=== PATIENT | female | born 1945 | race Caucasian/White ===

== ENCOUNTER 2022-10-29 02:43 | Emergency (ER) | payer MEDICARE, SELFPAY ==
[2022-10-29 02:45] VITALS: BP 135/94; PULSE 69; RESP 12; TEMP 35; O2SAT 87
--- NOTE | 2022-10-29 02:45 | ED_ITS ---
HPI - Altered Mental Status General Chief Complaint: Fall Stated Complaint: FALL Time Seen by Provider: 10/29/22 02:45 History of Present Illness HPI narrative: NHP with history of hypoxemia who is 02 dependent. Normally wears 6L NC. Found in the hallway not wearing her 02. Was on the floor and unresponsive. Hypotensive and hypoxemia. 6L NC placed by nursing staff and Squad called. Patient became more responsive after 02 given. Squad now arrives and states patient is back at her base line . Pulse ox 94% on 6L NC. Patient has a bump above her right eye. Also complains of a headache and states she feels cold. Denies other injury. No nausea or dizziness Related Data Home Medications Medication Instructions Recorded Confirmed acetaminophen 325 mg capsule 325 mg PO Q6H PRN fever or pain 10/29/22 10/29/22 aclidinium bromide 400 1 inh inhalation BID 10/29/22 10/29/22 mcg/actuation breath activated powder inhaler ([employer]) albuterol sulfate 2.5 mg/3 mL 1.25 mg inhalation Q6H 10/29/22 10/29/22 (0.083 %) solution for nebulization atorvastatin 10 mg tablet 10 mg PO DAILY 10/29/22 10/29/22 budesonide-formoterol HFA 160 2 puff inhalation BID 10/29/22 10/29/22 mcg-4.5 mcg/actuation aerosol inhaler clonazepam 0.5 mg tablet 0.5 mg PO TID PRN anxiety 10/29/22 10/29/22 diltiazem HCl 30 mg tablet 60 mg PO BID 10/29/22 10/29/22 furosemide 40 mg tablet 40 mg PO BID 10/29/22 10/29/22 metoprolol succinate 25 mg 25 mg PO BID 10/29/22 10/29/22 tablet,extended release 24 hr multivitamin (Daily Multi-Vitamin 1 tab PO DAILY 10/29/22 10/29/22 tablet) omega-3 1,050 mn-zne-fqm-dpa-fish 1 cap PO DAILY 10/29/22 10/29/22 oil 1,200 mg capsule ([place]-3 (with docosapentaenoic acid)) quetiapine 25 mg tablet 12.5 mg PO DAILY PRN insomnia 10/29/22 10/29/22 sertraline 100 mg tablet 100 mg PO DAILY 10/29/22 10/29/22 warfarin 1 mg tablet 1 mg PO DAILY 10/29/22 10/29/22 warfarin 5 mg tablet 2.5 mg PO DAILY 10/29/22 10/29/22 Allergies Allergy/AdvReac Type Severity Reaction Status Date / Time FLORENCIO Inhibitors Allergy Unknown Verified 10/29/22 02:53 hydromorphone Allergy Unknown Verified 10/29/22 02:53 NSAIDS (Non-Steroidal Allergy Unknown Verified 10/29/22 02:53 Anti-Inflamma Review of Systems ROS Status of ROS 10 or more systems reviewed and unremarkable except as noted in history and below [facility] Medical History (Updated 10/29/22 @ 05:19 by Yannick Childress MD) Exam Constitutional Vital Signs - 24 hr 10/29/22 02:45 10/29/22 02:54 10/29/22 03:19 Temperature 95.0 F L 98.5 F Pulse Rate Pulse Rate [Monitor] 69 Respiratory Rate 12 Blood Pressure Blood Pressure [Right Arm] 135/94 H Pulse Oximetry 87 L 96 Oxygen Delivery Method Nasal Cannula Oxygen Delivery Flow Rate 6 6 10/29/22 02:46 10/29/22 02:46 Temperature Pulse Rate 110 H 91 H Pulse Rate [Monitor] Respiratory Rate 24 14 Blood Pressure 135/94 H 135/94 H Blood Pressure [Right Arm] Pulse Oximetry 72 L 97 Oxygen Delivery Method Oxygen Delivery Flow Rate Common normals: no apparent distress, oriented x3 and alert HENMT Common normals: normocephalic Head and scalp: other (mild contusion at right eyebrow.) Eye Common normals: EOMs intact bilaterally and conjunctivae normal Respiratory Effort & inspection: able to speak in complete sentences Other: diminished breath sounds Cardio Common normals: regular rhythm, S1 normal heart sound and S2 normal heart sound GI Common normals: Normal to inspection, nondistended, normoactive bowel sounds present and non-tender Back & Pelvis Common normals: no CVA tenderness, thoracic and lumbar spine normal to inspection, no thoracic nor lumbar tenderness and straight leg raise negative bilaterally Other: hips nontender Extremity Common normals: normal to inspection Neuro Common normals: oriented x3, CN's II-XII intact bilaterally, moves all extremities, no focal motor deficits and no sensory deficits noted Psych Appearance: grossly normal Course Vital Signs Vital signs: Vital Signs Temperature 95.0 F L 10/29/22 02:45 Pulse Rate 69 10/29/22 02:45 Respiratory Rate 12 10/29/22 02:45 Blood Pressure 135/94 H 10/29/22 02:45 Pulse Oximetry 87 L 10/29/22 02:45 Oxygen Delivery Method Nasal Cannula 10/29/22 02:45 Oxygen Delivery Flow Rate 6 10/29/22 02:45 Temperature 98.5 F 10/29/22 02:54 Pulse Rate 91 H 10/29/22 02:46 Respiratory Rate 14 10/29/22 02:46 Blood Pressure 135/94 H 10/29/22 02:46 Pulse Oximetry 96 10/29/22 03:19 Oxygen Delivery Method Nasal Cannula 10/29/22 02:45 Oxygen Delivery Flow Rate 6 10/29/22 03:19 MDM - Altered Mental Status MDM Narrative Medical decision making narrative: patient has history of COPD and chronic hypoxemia. Was found unresponsive in the hallway not wearing her 02. She did become responsive once 02 was applied but was still hypoxemic at the home. By the time squad got her here she was awake and back to baseline. Found to have focal contusion at right eyebrow. CT brain without acute findings. Cxray with chronic changes. Patient is resting comfortably with not complaint at this time. Will discharge back to the shelter. Will require transfer via Squad Lab Data Labs: Lab Results 10/29/22 Range/Units 03:04 WBC 8.6 (4.0-11.0) 10^3/uL RBC 3.75 L (4.20-5.40) 10^6/uL Hgb 11.3 L (12.0-16.0) g/dL Hct 37.0 (36.0-48.0) % MCV 98.7 (81.0-99.0) fL MCH 30.1 (26.7-34.0) pg MCHC 30.5 (29.9-35.2) g/dL RDW 17.4 H (11.0-15.0) % Plt Count 250 (150-450) 10^3/uL MPV 9.9 (9.5-13.5) fL Neut % (Auto) 68.8 (43.0-75.0) % Lymph % (Auto) 10.2 L (20.5-60.0) % [place] % (Auto) 13.3 H (1.7-12.0) % Eos % (Auto) 4.6 (0.9-7.0) % Baso % (Auto) 1.2 (0.2-2.0) % Neut # (Auto) 5.9 (1.4-6.5) 10^3/uL Lymph # (Auto) 0.9 L (1.2-3.8) 10^3/uL [place] # (Auto) 1.1 H (0.3-0.8) 10^3/uL Eos # (Auto) 0.4 (0.0-0.7) 10^3/uL Baso # (Auto) 0.1 (0.0-0.1) 10^3/uL Abs Immat Gran (auto) 0.16 H (0.00-0.03) 10^3/uL Imm/Tot Granulo (auto) 1.9 H (0.0-0.5) % Sodium 141 (136-145) mmol/L Potassium 3.9 (3.5-5.1) mmol/L Chloride 101 (98-107) mmol/L Carbon Dioxide 33.1 H (21.0-32.0) mmol/L Anion Gap 10.8 BUN 30.0 H (7.0-18.0) mg/dL Creatinine 1.28 H (0.55-1.02) mg/dL Est GFR ( Amer) 49 L (>=60) Est GFR (Non-Af Amer) 40 L (>=60) BUN/Creatinine Ratio 23.4 Glucose 141 H (74-106) mg/dL Calcium 8.5 (8.5-10.1) mg/dL Troponin I High Sens 12.5 (4.0-51.3) pg/mL Discharge Plan Discharge Chief Complaint: Fall Clinical Impression: Hypoxemia, Contusion of face, Head injury Patient Disposition: Home, Self-Care Prescriptions / Home Meds: No Action acetaminophen 325 mg capsule 325 mg PO Q6H PRN (Reason: fever or pain) albuterol sulfate 2.5 mg /3 mL (0.083 %) solution for nebulization 1.25 mg inhalation Q6H atorvastatin 10 mg tablet 10 mg PO DAILY budesonide-formoterol 160-4.5 mcg/actuation HFA aerosol inhaler 2 puff INHALATION BID clonazepam 0.5 mg tablet 0.5 mg PO TID PRN (Reason: anxiety) diltiazem HCl 30 mg tablet 60 mg PO BID furosemide 40 mg tablet 40 mg PO BID metoprolol succinate 25 mg tablet extended release 24 hr 25 mg PO BID multivitamin [Daily Multi-Vitamin] Tablet 1 tab PO DAILY [place]-3 (with dpa) 1,050-1,200 mg capsule 1 cap PO DAILY quetiapine 25 mg tablet 12.5 mg PO DAILY PRN (Reason: insomnia) sertraline 100 mg tablet 100 mg PO DAILY [employer] Pressair 400 mcg/actuation aerosol powdr breath activated 1 inh INHALATION BID warfarin 5 mg tablet 2.5 mg PO DAILY warfarin 1 mg tablet 1 mg PO DAILY Instructions: Head Injury (ED), Using Oxygen at Home (ED), Hypoxemia (DC), Facial Contusion (ED) Stand Alone Forms: Portal Instructions Referrals: ELLIE WINN DO [Physician] - 1 week
[2022-10-29 02:46] VITALS: BP 135/94; PULSE 110; PULSE 91; RESP 14; RESP 24; O2SAT 72; O2SAT 97
--- NOTE | 2022-10-29 02:50 | XR_ITS ---
The [address] [address] Patient Name: ARGELIA LOMBARDI MRN: [id number] date: 1945 Sex: F Assigned Patient Location: ER Current Patient Location: ED.MAIN Accession/Order Number: [id number] Exam Date: 10/29/2022 03:28 Report Date: 10/29/2022 05:21 At the request of: JAYLEN PINZON Procedure: XR chest 2V EXAM: XR chest 2V 10/29/2022 3:28 AM EDT OH001 CLINICAL STATEMENT: short of breath COMPARISON: No prior studies are available at the time of dictation. TECHNIQUE: PA and lateral radiograph of the chest is submitted. FINDINGS: There is mild pulmonary vascular congestion with bilateral atelectasis and/or airspace disease. Enlarged cardiac silhouette. Atherosclerotic aortic calcification. The costophrenic recesses are sharp. No pneumothorax. The bony elements are unremarkable. IMPRESSION: Mild pulmonary vascular congestion with bilateral atelectasis and/or airspace disease. Enlarged cardiac silhouette. Atherosclerotic aortic calcification. Electronically authenticated by: GEORGE ESQUIVEL Date: 10/29/2022 05:21
--- NOTE | 2022-10-29 02:50 | CT_ITS ---
The [address] [address] Patient Name: ARGELIA LOMBARDI MRN: [id number] date: 1945 Sex: F Assigned Patient Location: ED.MAIN Current Patient Location: Accession/Order Number: [id number] Exam Date: 10/29/2022 03:28 Report Date: 10/29/2022 05:04 At the request of: JAYLEN PINZON Procedure: CT head/brain wo con EXAM: CT head/brain wo con CLINICAL INDICATION: injury COMPARISON: None TECHNIQUE: Axial CT images of the brain were obtained without contrast. Dose reduction techniques were achieved by using automated exposure control and/or adjustment of mA and/or kV according to patient size and/or use of iterative reconstruction technique. FINDINGS: Brain parenchyma: No mass effect or midline shift is seen. Hua-white differentiation is maintained. No findings suspicious for intracranial hemorrhage. No findings suggesting acute stroke. Periventricular hypoattenuation / patchy white matter hypodensities are statistically most often related to small vessel ischemic disease. Ventricles and extra-axial spaces: Ventricles are concordant with sulci. No findings suggesting hydrocephalus. Visualized paranasal sinuses: No findings suggesting acute sinusitis. Mastoid air cells: Clear. Included portions of the orbits:Included portions of the orbits with no evidence of fracture or other acute pathology. Bones: No fracture is seen. Impression: 1. No acute intracranial process. 2. Age-appropriate cerebral volume loss with mild chronic small vessel ischemic disease. Electronically authenticated by: NEIL ESQUEDA Date: 10/29/2022 05:04
--- NOTE | 2022-10-29 02:50 | ECG_ITS ---
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
[2022-10-29 02:54] VITALS: TEMP 36.9
[2022-10-29 03:13] LABS: Basophils Absolute Auto 0.1 10^3/uL (0.0-0.1); Basophils Percent Auto 1.2 % (0.2-2.0); Eosinophils Absolute Auto 0.4 10^3/uL (0.0-0.7); Eosinophils Percent Auto 4.6 % (0.9-7.0); Hemoglobin 11.3 g/dL (12.0-16.0); Immature Granulocytes Abs Auto 0.16 10^3/uL (0.00-0.03); Immature Granulocytes Pct Auto 1.9 % (0.0-0.5); Lymphocytes Absolute Auto 0.9 10^3/uL (1.2-3.8); Lymphocytes Percent Auto 10.2 % (20.5-60.0); Mean Corpuscular HGB Conc 30.5 g/dL (29.9-35.2); Mean Corpuscular Hemoglobin 30.1 pg (26.7-34.0); Mean Corpuscular Volume 98.7 fL (81.0-99.0); Mean Platelet Volume 9.9 fL (9.5-13.5); Monocytes Absolute Auto 1.1 10^3/uL (0.3-0.8); Monocytes Percent Auto 13.3 % (1.7-12.0); Neutrophils Absolute Auto 5.9 10^3/uL (1.4-6.5); Neutrophils Percent Auto 68.8 % (43.0-75.0); Platelet Count 250 10^3/uL (150-450); Red Blood Count 3.75 10^6/uL (4.20-5.40); Red Cell Distribution Width 17.4 % (11.0-15.0); White Blood Count 8.6 10^3/uL (4.0-11.0)
[2022-10-29 03:19] VITALS: O2SAT 96
[2022-10-29 03:28] LABS: Anion Gap 10.8; BUN Creatinine Ratio 23.4; Calcium 8.5 mg/dL (8.5-10.1); Carbon Dioxide 33.1 mmol/L (21.0-32.0); Chloride 101 mmol/L (98-107); Estimated GFR (African America 49 (>=60); Estimated GFR (Non-African Ame 40 (>=60); Glucose 141 mg/dL (74-106); Potassium 3.9 mmol/L (3.5-5.1); Sodium 141 mmol/L (136-145); Troponin I High Sensitivity 12.5 pg/mL (4.0-51.3)
--- NOTE | 2022-10-29 03:44 | PC.NURSE ---
arrives via EMS from [facility]. pt had unwitnessed fall prior to arrival. per [facility] nurse Antonina post fall patient was unresponsive with guppy breathing, bp 803/40s, spO2 on 6L low 70s. nurse states patient was not wearing o2 when found and normally wears 6L at all times. upon EMS arrival patient began to be more alert but remained slow to respond. upon arrival to ED dr bach met pt at bedside, pt alert and oriented to self, place, not oriented to time or situation regarding fall. states she does not remember events leading up to the fall or [facility]. denies neck or back pain. complains of headache to right side and rates pain 2/10. patient takes daily blood thinner. pts arrived after patient and told this RN patient appears to be at normal orientation, as she has history of dementia, he states she has very poor short term memory. patients states she is supposed to wear oxygen all the time but frequently takes it off and forgets to put it back on. per patients patient is acting like her normal self at this time. EKG obtained during triage. patient arrives with IV established by EMS.
--- NOTE | 2022-10-29 07:32 | PC.NURSE ---
0715 -- Pt wondered if he could take pt back to [facility] himself. He states he has oxygen tanks in the car. Received approval by Dr Castaneda. assisted pt into wheelchair, pt cooperative. Oxygen NC remains intact.
== END 2022-10-29 07:29 | disposition home or self-care (01) ==
PROVIDERS: Emergency Provider Internal Medicine; PCP Family Medicine
DX: R09.02 Hypoxemia (principal); S00.11XA Contusion of right eyelid and periocular area, initial encounter; S09.90XA Unspecified injury of head, initial encounter; Z99.81 Dependence on supplemental oxygen; J44.9 Chronic obstructive pulmonary disease, unspecified; Z79.899 Other long term (current) drug therapy; Z79.01 Long term (current) use of anticoagulants; W19.XXXA Unspecified fall, initial encounter
CPT/HCPCS: 36415; 70450; 71046; 80048; 84484; 85025; 93005; 99285

== ENCOUNTER 2022-10-29 22:26 | Inpatient (IN) | payer MEDICARE, SELFPAY ==
[2022-10-29] VITALS (12 sets, daily range): BP systolic 85–116; BP diastolic 66–80; PULSE 100–124; RESP 13–36; TEMP 36.6; O2SAT 77–97; BMI 25.8
--- NOTE | 2022-10-29 22:27 | CT_ITS ---
[address] [address] Patient Name: ARGELIA LOMBARDI MRN: [id number] date: 1945 Sex: F Assigned Patient Location: ER Current Patient Location: ER Accession/Order Number: [id number] Exam Date: 10/29/2022 22:28 Report Date: 10/29/2022 22:50 At the request of: TOSHIA BECKWITH Procedure: CT stroke head/brain wo con EXAMINATION: CT stroke head/brain wo con TECHNIQUE: Axial CT images were obtained through the brain. Sagittal and coronal reformatted images were also obtained. Dose reduction techniques were achieved by using automated exposure control and/or adjustment of mA and/or kV according to patient size and/or use of iterative reconstruction technique. HISTORY: ams COMPARISON: 10/29/2022 at 3:30 AM FINDINGS: Intracranial Bleed: No evidence for acute intracranial bleed. Intracranial Mass: No evidence for mass lesion. No mass effect or midline shift. Extra-axial spaces: There is mild cerebral atrophy and proportional ventricular enlargement. White/Hua Matter: No acute cortical infarct. Mild white matter patchy low attenuation suggesting chronic small vessel ischemic change. Skull/Scalp: No evidence for skull fracture or lesion. Orbits and sinuses: The orbits appear unremarkable. The visualized paranasal sinuses are clear. IMPRESSION: No acute intracranial pathology. Electronically authenticated by: KOJO HERRING Date: 10/29/2022 22:50
--- NOTE | 2022-10-29 22:48 | XR_ITS ---
The [address] [address] Patient Name: ARGELIA LOMBARDI MRN: [id number] date: 1945 Sex: F Assigned Patient Location: ER Current Patient Location: ER Accession/Order Number: [id number] Exam Date: 10/29/2022 23:06 Report Date: 10/30/2022 00:05 At the request of: TOSHIA MARKER Procedure: XR chest 1V EXAM: XR chest 1V 10/29/2022 11:06 PM EDT OH001 CLINICAL STATEMENT: SOB COMPARISON: No prior studies are available at the time of dictation. TECHNIQUE: Single AP radiograph of the chest is submitted. FINDINGS: There is bilateral lower lobe airspace disease. Enlarged cardiac silhouette. Mild right pleural effusion. Atherosclerotic aortic calcifications. No pneumothorax. The bony elements are unremarkable. IMPRESSION: Bilateral lower lobe airspace disease. Enlarged cardiac silhouette. Mild right pleural effusion. Electronically authenticated by: GEORGE ESQUIVEL Date: 10/30/2022 00:05
--- NOTE | 2022-10-29 22:49 | ECG_ITS ---
The [facility] Test Date: 2022-10-29 Pat Name: ARGELIA LOMBARDI Department: Room: - Gender: Female Cafeteria Assistant: : 1945 Requested By: [id number] Order Number: [id number] Reading MD: ALISON FUENTES Measurements Intervals [place] Rate: 129 P: -41145 HI: -96476 QRS: 93 QRSD: 88 T: -69 QT: 314 QTc: 390 Interpretive Statements 37759 Atrial fibrillation with rapid ventricular response 2420 RSR (QR) in lead V1/V2, consistent with right ventricular conduction delay ST/T wave changes, can't exclude inferolateral myocardial ischemia 7102 Moderate right axis deviation 9140 abnormal rhythm ECG Electronically Signed On 10-30-2022 7:03:00 EDT by ALISON FUENTES
--- NOTE | 2022-10-29 22:50 | ED_ITS ---
HPI - Neuro Symptoms/Deficit General Chief Complaint: Neuro Symptoms/Deficit Stated Complaint: cva Time Seen by Provider: 10/29/22 22:35 Mode of arrival: ambulance Limitations: no limitations History of Present Illness HPI Narrative: This patient was brought to the emergency department from the [facility] where she currently resides and has been there for less than one week after being admitted there for rehab is brought to the ED for evaluation of altered mental status. There was concern for a stroke as the patient was confused with slurred speech and was leaning to the left with a facial droop and drooling. The patient was seen in this emergency department yesterday for similar symptoms. Yesterday she had fallen and has some bruises on the right side of her face. There was no report of any fall or injury today.The patient has a history of chronic obstructive pulmonary disease and CHF with requirements for supplemental oxygen and is noncompliant with her oxygen. Yesterday she was noted to have taken the oxygen off. Upon arrival today she is not wearing oxygen. She is awake, alert, able to follow commands. She is not leaning to the right. She does not remember where she came from the has a history of dementia. She was evaluated and admitted for observation last night and discharged back to the [facility] earlier today. There was no history of trauma today. Additional history is obtained from the patient's - he states that she has recently had thoracentesis twice due to pleural effusions. She has a history of congestive heart failure. Her glass embosser is Dr. Fraire Onset (ago): hour(s) (1) Related Data Home Medications Medication Instructions Recorded Confirmed acetaminophen 325 mg capsule 650 mg PO Q6H PRN fever or pain 10/29/22 10/30/22 aclidinium bromide 400 1 inh inhalation BID 10/29/22 10/30/22 mcg/actuation breath activated powder inhaler (Jackdorza Pressair) albuterol sulfate 2.5 mg/3 mL 1.25 mg inhalation Q6H 10/29/22 10/30/22 (0.083 %) solution for nebulization atorvastatin 10 mg tablet 10 mg PO DAILY 10/29/22 10/30/22 budesonide-formoterol HFA 160 2 puff inhalation BID 10/29/22 10/30/22 mcg-4.5 mcg/actuation aerosol inhaler clonazepam 0.5 mg tablet 0.5 mg PO TID PRN anxiety 10/29/22 10/30/22 diltiazem HCl 30 mg tablet 60 mg PO BID 10/29/22 10/30/22 furosemide 40 mg tablet 40 mg PO BID 10/29/22 10/30/22 metoprolol succinate 25 mg 25 mg PO BID 10/29/22 10/30/22 tablet,extended release 24 hr multivitamin (Daily Multi-Vitamin 1 tab PO DAILY 10/29/22 10/30/22 tablet) omega-3 1,050 lf-kvf-hxp-dpa-fish 1 cap PO DAILY 10/29/22 10/30/22 oil 1,200 mg capsule (Stanley-3 (with docosapentaenoic acid)) quetiapine 25 mg tablet 12.5 mg PO DAILY PRN insomnia 10/29/22 10/30/22 sertraline 100 mg tablet 100 mg PO DAILY 10/29/22 10/30/22 warfarin 1 mg tablet 1 mg PO DAILY 10/29/22 10/30/22 warfarin 5 mg tablet 2.5 mg PO DAILY 10/29/22 10/30/22 Allergies Allergy/AdvReac Type Severity Reaction Status Date / Time FLORENCIO Inhibitors Allergy Unknown Verified 10/29/22 02:53 hydromorphone Allergy Unknown Verified 10/29/22 02:53 NSAIDS (Non-Steroidal Allergy Unknown Verified 10/29/22 02:53 Anti-Inflamma Review of Systems ROS Status of ROS 10 or more systems reviewed and unremarkable except as noted in history and below and unobtainable due to mental status (Hx dementia) [facility] Medical History (Updated 10/30/22 @ 02:33 by Jamie Harman MD) Family History (Updated 10/30/22 @ 02:33 by Jamie Harman MD) Father Family history of CHF (congestive heart failure) Family history of COPD (chronic obstructive pulmonary disease) Family history of hypertension Family history of myocardial infarction Mother Family history of COPD (chronic obstructive pulmonary disease) Other Dementia Social History (Updated 10/30/22 @ 02:20 by Toya Millan) Within the past year, how often did you have a drink containing alcohol: never Score interpretation: A score less than 3 is consistent with normal alcohol consumption. Smoking status: Light tobacco smoker Do you use any of these nicotine containing products: other Nicotine containing products detail: cigarettes Second hand tobacco smoke exposure: Yes Non-prescribed substance use: denies use Previous occupational history: RN Known occupational exposures/hazards: Yes Highest level of school completed/degree received: Associate degree: occupational, technical, vocational program Do you want help with school or training: No Are you now , , , , never or living with a partner: In a typical week, how many times do you talk on the telephone with family, friends, or neighbors: never How often do you get together with friends or relatives: never How often do you attend amish or samaritan services: never Do you belong to any clubs or organizations such as amish groups unions, [employer] or athletic groups, or school groups: no Total score: 1 Score interpretation: A score of less than or equal to 1 indicates the most socially isolated. Little interest or pleasure in doing things: nearly every day Feeling down, depressed, or hopeless: nearly every day Feel stressed/tense/nervous/anxious/difficulty sleeping: very much Life stressor details: respiratory stress Due to disability, difficulty making decisions: Yes Do you think of yourself as: decline to answer Gender Identity: female Exam Narrative Exam Narrative: Constitutional: Awake, alert, answers questions appropriately, follows commands, no respiratory distress Vital signs, afebrile, tachycardic with pulse 119, blood pressure moderately low 99/72, he should noted to be hypoxic with pulse ox of 96 percent on nonrebreather HEENT, normocephalic, atraumatic, bruising to the right periorbital area, pupils are equal and reactive, no diplopia appreciated, because members are moist and pink Neck: Supple, no meningeal signs, No midline bony vertebral tenderness or step-o ff Chest: Diffusely diminished breath sounds with faint bibasilar rales, no rhonchi or wheezing noted Abdomen: Soft, nondistended nontender Back, no midline vertebral tenderness or step-off Extremities: Abrasions to multiple toes, no bony tenderness noted Neuro: Patient is awake, alert, oriented to person and place. [employer] strengths intact no facial droop, pt is too weak to perform pronator testing, able to flex at the hip on both sides and bend knees, NIH Stoke Scale is zero Constitutional Vital Signs - 24 hr 10/29/22 22:37 10/29/22 22:38 10/29/22 22:44 Temperature 97.9 F Pulse Rate 112 H 109 H Pulse Rate [Monitor] 100 H Respiratory Rate 22 22 23 Blood Pressure 94/77 103/76 Blood Pressure [Right Arm] 94/77 Pulse Oximetry 94 L Oxygen Delivery Method Simple Mask Oxygen Delivery Flow Rate 10/29/22 22:45 10/29/22 22:49 10/29/22 22:50 Temperature Pulse Rate 120 H 109 H 112 H Pulse Rate [Monitor] Respiratory Rate 18 17 17 Blood Pressure 102/70 116/80 H 96/80 H Blood Pressure [Right Arm] Pulse Oximetry 94 L 96 Oxygen Delivery Method Oxygen Delivery Flow Rate 10/29/22 22:50 10/29/22 23:00 10/29/22 23:10 Temperature Pulse Rate 114 H 109 H 100 H Pulse Rate [Monitor] Respiratory Rate 18 36 H 19 Blood Pressure 96/80 H 109/66 113/68 Blood Pressure [Right Arm] Pulse Oximetry 97 96 95 Oxygen Delivery Method Oxygen Delivery Flow Rate 10/29/22 23:22 10/29/22 23:30 10/30/22 01:00 Temperature Pulse Rate 111 H 119 H Pulse Rate [Monitor] Respiratory Rate 17 15 Blood Pressure 95/68 99/72 Blood Pressure [Right Arm] Pulse Oximetry 93 L 96 97 Oxygen Delivery Method Simple Mask Oxygen Delivery Flow Rate 6 10/29/22 23:30 10/29/22 23:40 10/29/22 23:50 Temperature Pulse Rate 110 H 116 H 124 H Pulse Rate [Monitor] Respiratory Rate 13 19 22 Blood Pressure 99/72 96/69 85/66 L Blood Pressure [Right Arm] Pulse Oximetry 96 95 77 L Oxygen Delivery Method Oxygen Delivery Flow Rate 10/30/22 00:00 10/30/22 00:10 10/30/22 00:20 Temperature Pulse Rate 94 H 108 H 112 H Pulse Rate [Monitor] Respiratory Rate 22 26 H 22 Blood Pressure 101/62 102/65 86/68 L Blood Pressure [Right Arm] Pulse Oximetry 94 L Oxygen Delivery Method Oxygen Delivery Flow Rate 10/30/22 00:32 10/30/22 00:36 10/30/22 00:36 Temperature Pulse Rate 119 H 105 H 111 H Pulse Rate [Monitor] Respiratory Rate 25 H 21 28 H Blood Pressure 119/83 H Blood Pressure [Right Arm] Pulse Oximetry 96 82 L Oxygen Delivery Method Oxygen Delivery Flow Rate 10/30/22 00:36 10/30/22 00:40 10/30/22 00:50 Temperature Pulse Rate 112 H 118 H 94 H Pulse Rate [Monitor] Respiratory Rate 24 20 19 Blood Pressure 119/83 H 115/90 H 114/84 H Blood Pressure [Right Arm] Pulse Oximetry 82 L 99 91 L Oxygen Delivery Method Oxygen Delivery Flow Rate 10/30/22 01:00 10/30/22 01:10 10/30/22 01:20 Temperature Pulse Rate 104 H 100 H 103 H Pulse Rate [Monitor] Respiratory Rate 15 17 13 Blood Pressure 112/74 99/71 93/61 Blood Pressure [Right Arm] Pulse Oximetry 96 99 99 Oxygen Delivery Method Oxygen Delivery Flow Rate Course Course Hospital Course: Patient remains awake alert and oriented at her neurologic baseline while in the emergency department. CT scan of the brain was negative for acute findings. This is in keeping with her fairly normal neuro exam with no focal deficits. An EKG is atrial fibrillation at 129 on arrival. She was given IV fluid boluses with clinical improvement patient she is in atrial fibrillation at 97 minutes. According to the patient's she has had thoracentesis twice recently for pleural effusions and congestive heart failure. An ABG was done due to the history of confusion. She has normal pH 7.36. PCO2 is mildly elevated at 54. Routine labs are reviewed. She has a normal white count and hemoglobin today. She has an elevated lactic acid at 5.6. Troponin is normal. I added on a BNP and coagulations as she does have a history of congestive heart failure and is on Coumadin. I reviewed her chest x-ray from today and yesterday. She has in the interim developed a right lower lobe infiltrate that is concerning for pneumonia. This was not present on yesterday's chest x-ray. In light of that she was medicated with IV Zosyn. She was given 20 mg of IV Lasix due to her history of congestive heart failure. Her blood pressure has remained moderately low in her mental status has remained stable.The case was discussed with the hospitalist the patient accepted for admission. Vital Signs Vital signs: Vital Signs Temperature 97.9 F 10/29/22 22:37 Pulse Rate 100 H 10/29/22 22:37 Respiratory Rate 22 10/29/22 22:37 Blood Pressure 94/77 10/29/22 22:37 Pulse Oximetry 94 L 10/29/22 22:37 Oxygen Delivery Method Simple Mask 10/29/22 22:37 Temperature 99 F 10/30/22 02:07 Pulse Rate 81 10/30/22 02:07 Respiratory Rate 24 10/30/22 02:07 Blood Pressure 103/65 10/30/22 02:07 Pulse Oximetry 91 L 10/30/22 02:28 Oxygen Delivery Method Simple Mask 10/30/22 02:28 Oxygen Delivery Flow Rate 6 10/30/22 02:28 MDM - Neuro Symptoms/Deficit Lab Data Labs: Lab Results 10/29/22 10/29/22 Range/Units 22:57 23:20 WBC 8.8 (4.0-11.0) 10^3/uL RBC 3.78 L (4.20-5.40) 10^6/uL Hgb 11.3 L (12.0-16.0) g/dL Hct 37.8 (36.0-48.0) % MCV 100.0 H (81.0-99.0) fL MCH 29.9 (26.7-34.0) pg MCHC 29.9 (29.9-35.2) g/dL RDW 17.3 H (11.0-15.0) % Plt Count 243 (150-450) 10^3/uL MPV 9.7 (9.5-13.5) fL Neut % (Auto) 74.5 (43.0-75.0) % Lymph % (Auto) 9.2 L (20.5-60.0) % [place] % (Auto) 10.3 (1.7-12.0) % Eos % (Auto) 3.2 (0.9-7.0) % Baso % (Auto) 1.0 (0.2-2.0) % Neut # (Auto) 6.5 (1.4-6.5) 10^3/uL Lymph # (Auto) 0.8 L (1.2-3.8) 10^3/uL [place] # (Auto) 0.9 H (0.3-0.8) 10^3/uL Eos # (Auto) 0.3 (0.0-0.7) 10^3/uL Baso # (Auto) 0.1 (0.0-0.1) 10^3/uL Abs Immat Gran (auto) 0.16 H (0.00-0.03) 10^3/uL Imm/Tot Granulo (auto) 1.8 H (0.0-0.5) % PT 12.9 H (9.0-11.6) sec INR 1.23 APTT 29.7 (22.3-36.2) sec Puncture Site Vv ABG pH 7.360 (7.350-7.450) ABG pCO2 54.5 H* (35.0-45.0) mmHg ABG pO2 73.1 L (80.0-100.0) mmHg ABG HCO3 30.7 H (22.0-26.0) mmol/L ABG O2 Saturation 93.7 % ABG Base Excess 5.3 H (-2.0-2.0) mmol/L Red Test Positive (POSITIVE) O2 Liters/Min 7 Sodium 137 (136-145) mmol/L Potassium 3.5 (3.5-5.1) mmol/L Chloride 98 (98-107) mmol/L Carbon Dioxide 29.0 (21.0-32.0) mmol/L Anion Gap 13.5 BUN 31.0 H (7.0-18.0) mg/dL Creatinine 1.42 H (0.55-1.02) mg/dL Est GFR ( Amer) 43 L (>=60) Est GFR (Non-Af Amer) 36 L (>=60) BUN/Creatinine Ratio 21.8 Glucose 185 H (74-106) mg/dL Lactate 5.6 H* (0.4-2.0) mmol/L Calcium 8.6 (8.5-10.1) mg/dL Total Bilirubin 0.4 (0.2-1.0) mg/dL AST 25 (15-37) U/L ALT 24 (14-59) U/L Alkaline Phosphatase 132 H (46-116) U/L Troponin I High Sens 15.3 (4.0-51.3) pg/mL NT-Pro-B Natriuret Pep 45795.0 H* (<=1800.0) pg/mL Total Protein 7.1 (6.4-8.2) g/dL Albumin 2.7 L (3.4-5.0) g/dL Globulin 4.4 g/dL Albumin/Globulin Ratio 0.6 ECG Data Attestation: I personally reviewed and interpreted this ECG as follows: (Atrial fibrillation with rapid ventricular response at 129 beats for minute, normal axis, nonspecific ST changes, no acute ST segment elevation or T-wave inversion) Critical Care Time Critical Care Time Total Critical Care Time: 45 Discharge Plan Discharge Chief Complaint: Neuro Symptoms/Deficit Clinical Impression: CHF (congestive heart failure), Atrial fibrillation, Altered mental status, COPD (chronic obstructive pulmonary disease), RLL pneumonia, Acidosis, lactic Patient Disposition: Admitted as Observation Time of Disposition Decision: 00:58 Condition: Fair Discharge Date/Time: 10/30/22 01:48
[2022-10-29 23:12] LABS: Basophils Absolute Auto 0.1 10^3/uL (0.0-0.1); Eosinophils Absolute Auto 0.3 10^3/uL (0.0-0.7); Eosinophils Percent Auto 3.2 % (0.9-7.0); Hematocrit 37.8 % (36.0-48.0); Hemoglobin 11.3 g/dL (12.0-16.0); Immature Granulocytes Abs Auto 0.16 10^3/uL (0.00-0.03); Immature Granulocytes Pct Auto 1.8 % (0.0-0.5); Lymphocytes Absolute Auto 0.8 10^3/uL (1.2-3.8); Lymphocytes Percent Auto 9.2 % (20.5-60.0); Mean Corpuscular HGB Conc 29.9 g/dL (29.9-35.2); Mean Corpuscular Hemoglobin 29.9 pg (26.7-34.0); Mean Platelet Volume 9.7 fL (9.5-13.5); Monocytes Absolute Auto 0.9 10^3/uL (0.3-0.8); Monocytes Percent Auto 10.3 % (1.7-12.0); Neutrophils Absolute Auto 6.5 10^3/uL (1.4-6.5); Neutrophils Percent Auto 74.5 % (43.0-75.0); Platelet Count 243 10^3/uL (150-450); Red Blood Count 3.78 10^6/uL (4.20-5.40); Red Cell Distribution Width 17.3 % (11.0-15.0); White Blood Count 8.8 10^3/uL (4.0-11.0)
[2022-10-29 23:27] LABS: Alanine Aminotransferase 24 U/L (14-59); Albumin Globulin Ratio 0.6; Albumin Level 2.7 g/dL (3.4-5.0); Alkaline Phosphatase 132 U/L (46-116); Anion Gap 13.5; Aspartate Amino Transferase 25 U/L (15-37); BUN Creatinine Ratio 21.8; Bilirubin Total 0.4 mg/dL (0.2-1.0); Calcium 8.6 mg/dL (8.5-10.1); Chloride 98 mmol/L (98-107); Estimated GFR (African America 43 (>=60); Estimated GFR (Non-African Ame 36 (>=60); Globulin 4.4 g/dL; Glucose 185 mg/dL (74-106); Potassium 3.5 mmol/L (3.5-5.1); Sodium 137 mmol/L (136-145); Total Protein 7.1 g/dL (6.4-8.2); Troponin I High Sensitivity 15.3 pg/mL (4.0-51.3)
[2022-10-29 23:30] LABS: HCO3 ABG 30.7 mmol/L (22.0-26.0); PO2 ABG 73.1 mmHg (80.0-100.0)
[2022-10-29 23:31] LABS: Allen Test POSITIVE (POSITIVE); Liters per Minute 7; O2 Mode SIMPLE MAS; Oxygen Saturation ABG 93.7 %
[2022-10-29 23:32] LABS: Base Excess ABG 5.3 mmol/L (-2.0-2.0)
[2022-10-29] MEDS: 0.9 % SODIUM CHLORIDE 1,000 ML 100 ML IV (23:34)
[2022-10-29 23:35] LABS: ABG PCO2 54.5 mmHg (35.0-45.0)
[2022-10-29 23:36] LABS: Lactate/Lactic Acid 5.6 mmol/L (0.4-2.0)
[2022-10-30] VITALS (115 sets, daily range): BP systolic 86–119; BP diastolic 61–90; PULSE 70–132; RESP 0–31; TEMP 36.6–37.2; O2SAT 82–99; BMI 28.0
[2022-10-30 00:59] LABS: INR 1.23; Partial Thromboplastin Time 29.7 sec (22.3-36.2); Prothrombin Time 12.9 sec (9.0-11.6)
--- NOTE | 2022-10-30 02:15 | CA_ITS ---
Patient: ARGELIA LOMBARDI Exam Date: 10/30/2022 : 1945 Gender:F Ordering : BHAKTI Chaparro SISTER Admission #: [id number] Family : SHAIKH Yuval FRANCO . Order #: [id number] CLICK HERE TO VIEW EXAM ECHOCARDIOGRAM REPORT PROCEDURE: CA ECHO DOPPLER COMPLETE INDICATIONS: CHF COMPARISON: None. DESCRIPTION: COMPLETE ECHOCARDIOGRAM Real-time transthoracic echocardiography with 2D, M-mode, spectral and color flow Doppler performed. QUALITY: Technical quality was good. LEFT VENTRICLE: Normal chamber size. Normal left ventricular wall thickness. The septum is abnormal in motion consistent with right ventricular pressure/volume overload. Systolic function appears at the lower limits of normal. LV EF: Visual estimation of left ventricular ejection fraction is difficult to accurately access due to heart rhythm, however it appears to be low normal at 50%. DIASTOLIC: Not adequately assessed due to heart rhythm. ATRIAL SEPTUM: LEFT ATRIUM: Severe dilatation. RIGHT ATRIUM: Severe dilatation. RIGHT VENTRICLE: Moderate dilatation. Severely decreased right ventricular systolic function. TRICUSPID VALVE: Normal mobility and thickness. No stenosis with moderate regurgitation. Moderate pulmonary hypertension. RVSP 58 mmHg MITRAL VALVE: Mildly thickened with normal mobility. No evidence of mitral valve stenosis. Mild mitral annular calcification. Moderate mitral regurgitation. AORTIC VALVE: Normal trileaflet appearance. No visible sclerosis. Normal leaflet mobility. No evidence of aortic valve stenosis. No aortic regurgitation. AORTIC ROOT: Normal diameter and appearance. PULMONIC VALVE: Normal thickness and mobility. No stenosis. Mild regurgitation. PERICARDIUM: No evidence of pericardial effusion. IVC: Mild dilatation, measuring 2.6 cm with no collapse. PLEURA: CONCLUSION: 1. Left ventricular systolic function is difficult to assess but appears at the lower limits of normal. LVEF is 50%. 2. Moderately dilated right ventricle with severely reduced systolic function. 3. Moderate mitral and tricuspid regurgitation. 4. Severe biatrial dilatation. 5. Moderately elevated right-sided pressures. RVSP is 58 mmHg. 6. The patient appears to be in atrial fibrillation during the exam. Adult Echocardiography Procedure Report Left Ventricle LVEDD (3.7 - 5.6 cm): 4.03 cm LVESD (2.2 - 4.0 cm): 3.45 cm LVIVS thickness (0.6 - 1.2 cm): 1.03 cm, 4.48 cm LVPW thickness (0.5 - 1.0 cm): 1.05 cm e': 0.12 m/s E - e': 4.83 LVOT Max Gradient: 2.21 mm[Hg] LVOT Area (cm2): 0.74 m/s Peak Velocity (LVOT): 0.74 m/s Mean Velocity (LVOT): 0.44 m/s LVOT Diameter 1.91 cm Left Ventricular Ejection Fraction: 50 % Left Atrium LA Volume Index (2D A2C): 108.45 ml/m2 Left Atrium Systolic Dimension: 4.60 cm Mitral Valve MV E to A Ratio: 0.00 Mitral Valve A-Wave Peak Velocity: 1.24 m/s Mitral Valve E-Wave Peak Velocity: 0.59 m/s Right Ventricle RV Internal Diastolic Dimension: 4.30 cm Aorta AO Root Diam: 3.11 cm Ascending Ao Diam: 2.91 cm Aortic Valve AoV Area (Peak Jg): 2.64 cm2, 2.64 cm2 AoV Area (VTI): 2.61 cm2, 2.61 cm2 Peak Velocity(Antegrade Flow): 0.80 m/s Peak Gradient(Antegrade Flow): 2.58 mm[Hg] Mean Velocity(Antegrade Flow): 0.54 m/s Mean Gradient(Antegrade Flow): 1.31 mm[Hg] Velocity Time Integral: 13.52 cm Tricuspid Valve Peak Velocity (Regurgitant Flow): 2.72 m/s, 3.30 m/s, 3.22 m/s Pulmonic Valve Peak Velocity: 0.48 m/s Peak Gradient: 0.97 mm[Hg], 0.90 mm[Hg] Right Atrium Right Atrium Systolic Pressure: 120.35 ml, 120.35 ml Dictated by: Afshin Posey M.D. on 10/30/2022 at 17:53 Approved by: Afshin Posey M.D. on 10/30/2022 at 18:03
--- NOTE | 2022-10-30 02:28 | W.PM.TELEPN ---
Progress Note: Subjective Subjective Interval history: CC: sent in for evaluation of hypotension, hypoxia HPI: This patient was brought to the emergency department from the [facility] where she currently resides and has been there for less than one week after being admitted there for rehab is brought to the ED for evaluation of altered mental status. There was concern for a stroke as the patient was confused with slurred speech and was leaning to the left with a facial droop and drooling. The patient was seen in this emergency department yesterday for similar symptoms. Yesterday she had fallen and has some bruises on the right side of her face. There was no report of any fall or injury today.The patient has a history of chronic obstructive pulmonary disease and CHF with requirements for supplemental oxygen and is noncompliant with her oxygen. Yesterday she was noted to have taken the oxygen off. Upon arrival today she is not wearing oxygen. She is awake, alert, able to follow commands. She is not leaning to the right. She does not remember where she came from the has a history of dementia. She was evaluated and admitted for observation last night and discharged back to the [facility] earlier today. There was no history of trauma today. Exam Narrative Exam Narrative: Physical Exam: mild respiratory distress, well cempt Head - atraumatic, eyes - pupils equal, round, reactive to light, extra ocular movement intact, MMM Neck - supple, thyroid not enlarged, LN not palpated Lungs -coarse BSs, Gastrointestinal?abdomen is soft, non-tender, non-distended, no organomegaly, positive bowel sounds Extremities no clubbing, cyanosis or edema Neurological?cranial nerve II?XII grossly intact, no meningeal signs, no cerebellar signs, no sensory deficit Musculoskeletal - DJD related changes in multiple joints, no effusions, ROM preserved Dermatological - the skin dry, warm, no rashes Constitutional Vital Signs - 24 hr 10/29/22 22:37 10/29/22 22:38 10/29/22 22:44 Temperature 97.9 F Pulse Rate 112 H 109 H Pulse Rate [Monitor] 100 H Respiratory Rate Blood Pressure 94/77 103/76 Blood Pressure [Right Arm] 94/77 Pulse Oximetry 94 L Oxygen Delivery Method Simple Mask Oxygen Delivery Flow Rate 10/29/22 22:45 10/29/22 22:49 10/29/22 22:50 Temperature Pulse Rate 120 H 109 H 112 H Pulse Rate [Monitor] Respiratory Rate 18 17 17 Blood Pressure 102/70 116/80 H 96/80 H Blood Pressure [Right Arm] Pulse Oximetry 94 L 96 Oxygen Delivery Method Oxygen Delivery Flow Rate 10/29/22 22:50 10/29/22 23:00 10/29/22 23:10 Temperature Pulse Rate 114 H 109 H 100 H Pulse Rate [Monitor] Respiratory Rate 18 36 H 19 Blood Pressure 96/80 H 109/66 113/68 Blood Pressure [Right Arm] Pulse Oximetry 97 96 95 Oxygen Delivery Method Oxygen Delivery Flow Rate 10/29/22 23:22 10/29/22 23:30 10/30/22 01:00 Temperature Pulse Rate 111 H 119 H Pulse Rate [Monitor] Respiratory Rate 17 15 Blood Pressure 95/68 99/72 Blood Pressure [Right Arm] Pulse Oximetry 93 L 96 97 Oxygen Delivery Method Simple Mask Oxygen Delivery Flow Rate 6 10/29/22 23:30 10/29/22 23:40 10/29/22 23:50 Temperature Pulse Rate 110 H 116 H 124 H Pulse Rate [Monitor] Respiratory Rate 13 19 22 Blood Pressure 99/72 96/69 85/66 L Blood Pressure [Right Arm] Pulse Oximetry 96 95 77 L Oxygen Delivery Method Oxygen Delivery Flow Rate 10/30/22 00:00 10/30/22 00:10 10/30/22 00:20 Temperature Pulse Rate 94 H 108 H 112 H Pulse Rate [Monitor] Respiratory Rate 22 26 H 22 Blood Pressure 101/62 102/65 86/68 L Blood Pressure [Right Arm] Pulse Oximetry 94 L Oxygen Delivery Method Oxygen Delivery Flow Rate 10/30/22 00:32 10/30/22 00:36 10/30/22 00:36 Temperature Pulse Rate 119 H 105 H 111 H Pulse Rate [Monitor] Respiratory Rate 25 H 21 28 H Blood Pressure 119/83 H Blood Pressure [Right Arm] Pulse Oximetry 96 82 L Oxygen Delivery Method Oxygen Delivery Flow Rate 10/30/22 00:36 10/30/22 00:40 10/30/22 00:50 Temperature Pulse Rate 112 H 118 H 94 H Pulse Rate [Monitor] Respiratory Rate 24 20 19 Blood Pressure 119/83 H 115/90 H 114/84 H Blood Pressure [Right Arm] Pulse Oximetry 82 L 99 91 L Oxygen Delivery Method Oxygen Delivery Flow Rate 10/30/22 01:00 10/30/22 01:10 10/30/22 01:20 Temperature Pulse Rate 104 H 100 H 103 H Pulse Rate [Monitor] Respiratory Rate 15 17 13 Blood Pressure 112/74 99/71 93/61 Blood Pressure [Right Arm] Pulse Oximetry 96 99 99 Oxygen Delivery Method Oxygen Delivery Flow Rate 10/30/22 02:00 10/30/22 02:07 Temperature 99 F Pulse Rate 81 81 Pulse Rate [Monitor] Respiratory Rate 24 Blood Pressure Blood Pressure [Right Arm] 103/65 Pulse Oximetry 91 L Oxygen Delivery Method Simple Mask Oxygen Delivery Flow Rate 6 Progress Note: Objective Labs Labs: Short CBC 10/29/22 Range/Units 22:57 WBC 8.8 (4.0-11.0) 10^3/uL Hgb 11.3 L (12.0-16.0) g/dL Hct 37.8 (36.0-48.0) % Plt Count 243 (150-450) 10^3/uL BMP 10/29/22 22:57 Sodium 137 Potassium 3.5 Chloride 98 Carbon Dioxide 29.0 BUN 31.0 H Creatinine 1.42 H Glucose 185 H Calcium 8.6 Liver Function 10/29/22 Range/Units 22:57 Total Bilirubin 0.4 (0.2-1.0) mg/dL AST 25 (15-37) U/L ALT 24 (14-59) U/L Alkaline Phosphatase 132 H (46-116) U/L Albumin 2.7 L (3.4-5.0) g/dL Progress Note: A&P Assessment and Plan (1) Hypoxemia: Assessment and Plan: M/P related to PNA + COPD exacerbation - treat underlyin causes (2) CHF (congestive heart failure): Assessment and Plan: hold off Lasix gentle juditiouse IVF (3) Atrial fibrillation: Assessment and Plan: rate controlled with Metoprolol. ANticoagulated wiht COumadin (4) COPD (chronic obstructive pulmonary disease): Assessment and Plan: COPD exacerbation with respiratory failure combined hypoxemic and hypercapnia - admit to inpatient for close monitoring - O2 supplementation - RT assessment - inhaled and systemic steroids - inhaled bronchodilators - will order sputum Cx and Gramm stain - empiric, broad spectrum ABxs - probiotics while on ABXs - F/U Cxs - tailor ABxs accordingly - if no improvement - consider and ABG evaluation and consultation with [employer] T[employer] - (5) Altered mental status: Telemedicine Attestation Telemedicine Attestation I conducted this encounter from [place][] via secure live, [id number] video conference with the patient, located at [facility] with []metabolic encephalopath. Prior to the interview, the risks and benefits of telemedicine were discussed with the patient and verbal consent was obtained. As the provider for the telehealth service, I attest that I introduced myself to the patient, provided my credentials, disclosed by location and determined that based on a review of the patient's chart and discussion with members of the patient's treatment team, telemedicine via real-time, 2 way, and interactive audio and video platform is an appropriate and effective means of providing the service. ?The patient and I mutually agree this visit is appropriate for telemedicine. ?[place] ?The encounter took approximately 35 minutes. ?The nurse was present during the entire time and I was able to move the stethoscope in appropriate directions. ?The patient was evaluated at the Hospital ? Portions of this note may be dictated using [email or web address] voice recognition software. Variances in spelling and vocabulary are possible and unintentional. Not all errors may be caught and/or corrected. Please notify the author if any discrepancies are noted and/or if the meaning of any statement is unclear.? ? Patient verbally consented for treatment via video visit with patient currently located at [facility] and provider located in [place].
[2022-10-30 02:34] LABS: Lactate/Lactic Acid 1.6 mmol/L (0.4-2.0)
[2022-10-30] MEDS: 0.9 % SODIUM CHLORIDE 1,000 ML 75 ML IV ×2 (03:15→15:36)
[2022-10-30] MEDS: METHYLPREDNISOLONE SOD SUCC PF 40 MG/ML VIAL IVP (03:22)
[2022-10-30 03:34] LABS: Allen Test POSITIVE (POSITIVE); Oxygen Saturation ABG 94.5 %; pH ABG 7.326 (7.350-7.450)
[2022-10-30 03:35] LABS: Liters per Minute 7; O2 Mode SIMPLE MASK; Puncture Site RR
[2022-10-30 03:36] LABS: ABG PCO2 65.1 mmHg (35.0-45.0)
--- NOTE | 2022-10-30 04:31 | PC.NURSE ---
Pt. was transferred to ICU room 273 d/t increased confusion,lethargic and critical ABG's. Bedside report given to Padmini VANG. Patient transported with Tele, 6L o2 mask with belongings.
[2022-10-30 05:05] LABS: Hematocrit 35.6 % (36.0-48.0); Hemoglobin 10.7 g/dL (12.0-16.0); Mean Corpuscular HGB Conc 30.1 g/dL (29.9-35.2); Mean Corpuscular Volume 99.7 fL (81.0-99.0); Mean Platelet Volume 10.5 fL (9.5-13.5); Platelet Count 232 10^3/uL (150-450); Red Blood Count 3.57 10^6/uL (4.20-5.40); Red Cell Distribution Width 17.5 % (11.0-15.0)
[2022-10-30 05:17] LABS: Anion Gap 8.3; BUN Creatinine Ratio 24.1; Calcium 8.4 mg/dL (8.5-10.1); Carbon Dioxide 34.5 mmol/L (21.0-32.0); Chloride 103 mmol/L (98-107); Estimated GFR (African America 55 (>=60); Estimated GFR (Non-African Ame 45 (>=60); Glucose 131 mg/dL (74-106); Potassium 3.8 mmol/L (3.5-5.1); Sodium 142 mmol/L (136-145)
[2022-10-30 05:51] LABS: Band Neutrophils Absolute 0.1 10^3/uL (0.0-0.3); Hypochromasia 2+; Poikilocytosis 1+
[2022-10-30] MEDS: OLANZAPINE 10 MG VIAL 2.5 MG IM (07:07)
[2022-10-30] MEDS: PIPERACILLIN SODIUM/TAZOBACTAM 3.375 GM in 0.9 % SODIUM CHLORIDE 50 ML IV (08:55)
--- NOTE | 2022-10-30 09:39 | RESP.RT ---
Pulmicort treatment not given per nursing - DO NOT WAKE PATIENT
[2022-10-30 11:35] LABS: Glucometer 130 mg/dL (74-106)
[2022-10-30] MEDS: FUROSEMIDE 40 MG/4 ML VIAL IVP ×2 (11:38→23:17)
--- NOTE | 2022-10-30 11:56 | CM.NOTE ---
Rounds made with Dr. Fields, no discharge today. Pt continues with confusion. PT and OT will evaluate pt and will follow for discharge needs. Pt was at [facility] prior to admission.
[2022-10-30] MEDS: CEFTRIAXONE 1,000 MG in 0.9 % SODIUM CHLORIDE 50 ML 100 MG IV (12:04)
[2022-10-30] MEDS: METOPROLOL SUCCINATE 25 MG TAB.ER.24H PO ×2 (12:05→20:12)
[2022-10-30] MEDS: DILTIAZEM HCL 60 MG TABLET PO ×2 (12:05→20:12)
[2022-10-30] MEDS: PREDNISONE 20 MG TABLET 40 MG PO (12:06)
[2022-10-30] MEDS: OMEPRAZOLE 40 MG CAPSULE.DR PO (12:06)
[2022-10-30] MEDS: SERTRALINE HCL 100 MG TABLET PO (12:06)
--- NOTE | 2022-10-30 12:17 | SWNOTE1 ---
SW spoke with Priyanka, nurse at [facility], who cares for pt. Pt was admitted to [facility] on 10/24/22. She was admitted on 6 liters of oxygen at [facility]. Her normal state of mind is alert and talkative, but not oriented. Pt will be a precert to return to [facility]. SW to talk with family to see if that is their plan.
--- NOTE | 2022-10-30 13:43 | SWNOTE1 ---
SW was able to speak with pt's in room. Pt was sitting up on edge of bed and was alert, not oriented. Plan is for pt to return to [facility], pt will be a precert to return.
--- NOTE | 2022-10-30 13:44 | CM.NOTE ---
Important Message From Medicare discussed with pt and , both verbalize understanding and signs paper. Pt still having some underlying confusion. Original given to and copy placed on pt's chart.
[2022-10-30 15:35] LABS: Glucometer 233 mg/dL (74-106)
[2022-10-30] MEDS: INSULIN ASPART 300 UNIT/3 ML PEN SUBQ ×2 (15:35→21:40)
[2022-10-30] MEDS: WARFARIN SODIUM 5 MG TABLET 2.5 MG PO (17:18)
[2022-10-30] MEDS: WARFARIN SODIUM 1 MG TABLET PO (17:18)
[2022-10-30] MEDS: CLONAZEPAM 0.5 MG TABLET PO (17:37)
[2022-10-30] MEDS: BUDESONIDE 0.5 MG/2 ML AMPULE NEB IH (20:00)
[2022-10-30 20:11] LABS: Glucometer 228 mg/dL (74-106)
[2022-10-30] MEDS: QUETIAPINE FUMARATE 25 MG TABLET 12.5 MG PO (20:12)
--- NOTE | 2022-10-30 20:44 | PC.NURSE ---
Patient is confused, continuously trying to stand up and leave her room. States she is bored and doesn't want to be here anymore. Is arguing with redirection. States it is too early for her to go back to bed. patient is not oriented to place or time. Does not understand or reorient at this time.
[2022-10-31] VITALS (82 sets, daily range): BP systolic 100–116; BP diastolic 72–87; PULSE 73–120; RESP 7–32; TEMP 36.4–36.8; O2SAT 90–97
[2022-10-31] MEDS: 0.9 % SODIUM CHLORIDE 1,000 ML 75 ML IV (06:23)
[2022-10-31 06:37] LABS: Glucometer 129 mg/dL (74-106)
[2022-10-31 06:45] LABS: Basophils Percent Auto 0.2 % (0.2-2.0); Hematocrit 33.9 % (36.0-48.0); Hemoglobin 10.3 g/dL (12.0-16.0); Immature Granulocytes Abs Auto 0.05 10^3/uL (0.00-0.03); Immature Granulocytes Pct Auto 0.4 % (0.0-0.5); Lymphocytes Absolute Auto 0.6 10^3/uL (1.2-3.8); Lymphocytes Percent Auto 4.8 % (20.5-60.0); Mean Corpuscular HGB Conc 30.4 g/dL (29.9-35.2); Mean Corpuscular Volume 98.8 fL (81.0-99.0); Mean Platelet Volume 9.7 fL (9.5-13.5); Monocytes Absolute Auto 1.4 10^3/uL (0.3-0.8); Monocytes Percent Auto 10.9 % (1.7-12.0); Neutrophils Absolute Auto 10.7 10^3/uL (1.4-6.5); Neutrophils Percent Auto 83.7 % (43.0-75.0); Platelet Count 207 10^3/uL (150-450); Red Blood Count 3.43 10^6/uL (4.20-5.40); Red Cell Distribution Width 17.4 % (11.0-15.0); White Blood Count 12.8 10^3/uL (4.0-11.0)
[2022-10-31 07:07] LABS: Alanine Aminotransferase 19 U/L (14-59); Albumin Globulin Ratio 0.5; Albumin Level 2.2 g/dL (3.4-5.0); Alkaline Phosphatase 101 U/L (46-116); Anion Gap 6.7; Aspartate Amino Transferase 17 U/L (15-37); BUN Creatinine Ratio 26.8; Bilirubin Total 0.3 mg/dL (0.2-1.0); Calcium 8.4 mg/dL (8.5-10.1); Carbon Dioxide 34.3 mmol/L (21.0-32.0); Chloride 105 mmol/L (98-107); Estimated GFR (African America >60 (>=60); Estimated GFR (Non-African Ame >60 (>=60); Globulin 4.2 g/dL; Glucose 123 mg/dL (74-106); Sodium 142 mmol/L (136-145); Total Protein 6.4 g/dL (6.4-8.2)
[2022-10-31 07:14] LABS: INR 1.68; Prothrombin Time 17.3 sec (9.0-11.6)
[2022-10-31 07:21] LABS: Scan Results NEGATIVE
[2022-10-31] MEDS: METOPROLOL SUCCINATE 25 MG TAB.ER.24H PO ×2 (08:03→21:54)
[2022-10-31] MEDS: ATORVASTATIN CALCIUM 10 MG TABLET PO (08:03)
[2022-10-31] MEDS: MULTIVITAMIN TABLET 400 TAB PO (08:03)
[2022-10-31] MEDS: DILTIAZEM HCL 60 MG TABLET PO ×2 (08:04→21:54)
[2022-10-31] MEDS: SERTRALINE HCL 100 MG TABLET PO (08:04)
[2022-10-31] MEDS: OMEPRAZOLE 40 MG CAPSULE.DR PO (08:04)
[2022-10-31] MEDS: OMEGA-3/DHA/EPA/FISH OIL 1,000 MG CAPSULE 1000 MG PO (08:04)
[2022-10-31 08:05] LABS: Glucometer 108 mg/dL (74-106)
[2022-10-31] MEDS: BUDESONIDE 0.5 MG/2 ML AMPULE NEB IH (09:18)
[2022-10-31] MEDS: PREDNISONE 20 MG TABLET 40 MG PO (10:59)
[2022-10-31] MEDS: CEFTRIAXONE 1,000 MG in 0.9 % SODIUM CHLORIDE 50 ML 100 MG IV (11:00)
[2022-10-31] MEDS: FUROSEMIDE 40 MG/4 ML VIAL IVP ×2 (11:00→23:37)
[2022-10-31 11:07] LABS: Glucometer 127 mg/dL (74-106)
--- NOTE | 2022-10-31 12:02 | CM.NOTE ---
Rounds made with Dr. Fields, no discharge today. Pt will go back to the [facility] at discharge.
--- NOTE | 2022-10-31 13:19 | PT.DAILY ---
Physical Therapy Daily Note PT Daily Note/Assess Start: 10/31/22 13:15 Freq: Status: Active Protocol: Document 10/31/22 12:00 VENITAALINAVI (Rec: 10/31/22 13:18 RALPH [id number]) Physical Therapy Daily Note/Assessment Time In/Time Out Time In 12:00 Time Out 12:13 Pain In Pain N/A Pain Out Pain N/A Subjective Subjective Pt sitting in BS chair upon arrival. Agrees to PT. Seems confused. Just transferred from ICU to floor. SPO2 95% prior to session. Therapeutic Exercise Time Therapeutic Exercise Minutes (minutes) 5 Therapeutic Exercise Units 0 Therapeutic Exercise Treatment Therapeutic Exercise Treatment Seated AP, LAQ, marches and add squeezes 10x ea. Standing HR and marches 10x ea. SpO2 87 % with activity. Therapeutic Activity Time Therapeutic Activity Minutes (minutes) 5 Therapeutic Activity Units 1 Therapeutic Activity Treatment Chair Transfer Ability Contact Guard Assist Therapeutic Activity Comments Sit>stand to RW CGA. Amb 50' in room with RW, CGA. Becomes SOB with this activity. SPO2 87% with quick recovery to 94% . Total Physical Therapy Time Total Therapy Minutes 10 Total Physical Therapy Units 1 Summary Daily Note Summary Slight improvement with gait but cont to get SOB with activity.
--- NOTE | 2022-10-31 13:33 | PM.HP ---
H&P: HPI History of Present Illness Chief complaint: Altered mental Status Narrative: Delayed note for my encounter on 10/30/22 Patient [facility] local [facility] for increasing confusion, agitation, anxiety and possibility of stroke. Patient was recently discharge from [facility] about a week ago and had been at [facility] for a week only. She has chronic resp failure and requires 2 L O2 via NC, is non compliant with it and was noted to have worsening hypoxia in ED required 4-5 L O2 via NC. Her w/u in ED was c/w acute on chronic resp failure with hypoxia sec to COPD exacerbation, b/l PNA and acute on chronic diastolic HF. She also developed acute hypercapnic resp failure and was combative, agitated throughout the need and required IM Olanzapine to calm her down. At the time, I evaluated her, she was comfortable, in deep sleep and did not wake up and as a result I was unable to obtain any meaningful information from her. Review of Systems ROS Status of ROS unobtainable due to mental status [facility] Medical History Family History Father Family history of CHF (congestive heart failure) Family history of COPD (chronic obstructive pulmonary disease) Family history of hypertension Family history of myocardial infarction Mother Family history of COPD (chronic obstructive pulmonary disease) Other Dementia Social History Within the past year, how often did you have a drink containing alcohol: never Score interpretation: A score less than 3 is consistent with normal alcohol consumption. Smoking status: Light tobacco smoker Do you use any of these nicotine containing products: other Nicotine containing products detail: cigarettes Second hand tobacco smoke exposure: Yes Non-prescribed substance use: denies use Previous occupational history: RN Known occupational exposures/hazards: Yes Highest level of school completed/degree received: Associate degree: occupational, technical, vocational program Do you want help with school or training: No Are you now , , , , never or living with a partner: In a typical week, how many times do you talk on the telephone with family, friends, or neighbors: never How often do you get together with friends or relatives: never How often do you attend nondenominational or congregation services: never Do you belong to any clubs or organizations such as nondenominational groups unions, fraternal or athletic groups, or school groups: no Total score: 1 Score interpretation: A score of less than or equal to 1 indicates the most socially isolated. Little interest or pleasure in doing things: nearly every day Feeling down, depressed, or hopeless: nearly every day Feel stressed/tense/nervous/anxious/difficulty sleeping: very much Life stressor details: respiratory stress Due to disability, difficulty making decisions: Yes Do you think of yourself as: decline to answer Gender Identity: female Meds Home Medications and Allergies Home Medications Medication Instructions Recorded Confirmed Type acetaminophen 325 mg capsule 650 mg PO Q6H PRN fever or pain 10/29/22 10/30/22 History aclidinium bromide 400 1 inh inhalation BID 10/29/22 10/30/22 History mcg/actuation breath activated powder inhaler (Swirldorza Pressair) albuterol sulfate 2.5 mg/3 mL 1.25 mg inhalation Q6H 10/29/22 10/30/22 History (0.083 %) solution for nebulization atorvastatin 10 mg tablet 10 mg PO DAILY 10/29/22 10/30/22 History budesonide-formoterol HFA 160 2 puff inhalation BID 10/29/22 10/30/22 History mcg-4.5 mcg/actuation aerosol inhaler clonazepam 0.5 mg tablet 0.5 mg PO TID PRN anxiety 10/29/22 10/30/22 History diltiazem HCl 30 mg tablet 60 mg PO BID 10/29/22 10/30/22 History furosemide 40 mg tablet 40 mg PO BID 10/29/22 10/30/22 History metoprolol succinate 25 mg 25 mg PO BID 10/29/22 10/30/22 History tablet,extended release 24 hr multivitamin (Daily Multi-Vitamin 1 tab PO DAILY 10/29/22 10/30/22 History tablet) omega-3 1,050 lu-buq-bax-dpa-fish 1 cap PO DAILY 10/29/22 10/30/22 History oil 1,200 mg capsule ([place]-3 (with docosapentaenoic acid)) quetiapine 25 mg tablet 12.5 mg PO DAILY PRN insomnia 10/29/22 10/30/22 History sertraline 100 mg tablet 100 mg PO DAILY 10/29/22 10/30/22 History warfarin 1 mg tablet 1 mg PO DAILY 10/29/22 10/30/22 History warfarin 5 mg tablet 2.5 mg PO DAILY 10/29/22 10/30/22 History Allergies Allergy/AdvReac Type Severity Reaction Status Date / Time FLORENCIO Inhibitors Allergy Unknown Verified 10/29/22 02:53 hydromorphone Allergy Unknown Verified 10/29/22 02:53 NSAIDS (Non-Steroidal Allergy Unknown Verified 10/29/22 02:53 Anti-Inflamma Exam Constitutional Vital Signs - 24 hr 10/30/22 15:00 10/30/22 15:06 10/30/22 13:40 Temperature 98.2 F Pulse Rate 96 H 131 H Respiratory Rate 19 Blood Pressure Blood Pressure [Right Arm] Pulse Oximetry Oxygen Delivery Method Oxygen Delivery Flow Rate 10/30/22 13:50 10/30/22 14:00 10/30/22 14:10 Temperature Pulse Rate 106 H 108 H 104 H Respiratory Rate 18 17 20 Blood Pressure Blood Pressure [Right Arm] Pulse Oximetry Oxygen Delivery Method Oxygen Delivery Flow Rate 10/30/22 14:20 10/30/22 14:30 10/30/22 14:40 Temperature Pulse Rate 110 H 98 H 87 Respiratory Rate 7 L 15 15 Blood Pressure Blood Pressure [Right Arm] Pulse Oximetry Oxygen Delivery Method Oxygen Delivery Flow Rate 10/30/22 14:50 10/30/22 15:00 10/30/22 19:00 Temperature 98 F Pulse Rate 85 100 H 108 H Respiratory Rate 15 22 20 Blood Pressure 112/73 Blood Pressure [Right Arm] 114/77 Pulse Oximetry 95 95 Oxygen Delivery Method Nasal Cannula Oxygen Delivery Flow Rate 6 6 10/31/22 02:00 10/31/22 06:00 10/30/22 20:12 Temperature 97.9 F Pulse Rate 95 H 89 Respiratory Rate 18 16 Blood Pressure 114/77 Blood Pressure [Right Arm] 100/72 Pulse Oximetry 90 L 97 Oxygen Delivery Method Nasal Cannula Oxygen Delivery Flow Rate 6 6 10/30/22 20:00 10/30/22 20:00 10/30/22 22:13 Temperature 97.9 F Pulse Rate 75 108 H Respiratory Rate 18 18 Blood Pressure Blood Pressure [Right Arm] 117/77 Pulse Oximetry 92 L 92 L 94 L Oxygen Delivery Method Nasal Cannula Nasal Cannula Nasal Cannula Oxygen Delivery Flow Rate 6 6 6 10/31/22 04:19 10/31/22 07:37 10/30/22 23:20 Temperature Pulse Rate 103 H 101 H Respiratory Rate 20 13 Blood Pressure Blood Pressure [Right Arm] Pulse Oximetry 94 L Oxygen Delivery Method Nasal Cannula Oxygen Delivery Flow Rate 6 10/30/22 23:30 10/30/22 23:40 10/30/22 23:50 Temperature Pulse Rate 113 H 116 H 115 H Respiratory Rate 13 14 13 Blood Pressure Blood Pressure [Right Arm] Pulse Oximetry Oxygen Delivery Method Oxygen Delivery Flow Rate 10/31/22 00:00 10/31/22 00:10 10/31/22 00:20 Temperature Pulse Rate 120 H 112 H 116 H Respiratory Rate 13 14 14 Blood Pressure Blood Pressure [Right Arm] Pulse Oximetry Oxygen Delivery Method Oxygen Delivery Flow Rate 10/31/22 00:30 10/31/22 00:40 10/31/22 00:50 Temperature Pulse Rate 107 H 108 H 105 H Respiratory Rate 9 L 14 12 Blood Pressure Blood Pressure [Right Arm] Pulse Oximetry Oxygen Delivery Method Oxygen Delivery Flow Rate 10/31/22 01:00 10/31/22 01:10 10/31/22 01:20 Temperature Pulse Rate 109 H 107 H 115 H Respiratory Rate 13 12 14 Blood Pressure Blood Pressure [Right Arm] Pulse Oximetry Oxygen Delivery Method Oxygen Delivery Flow Rate 10/31/22 01:30 10/31/22 01:40 10/31/22 01:50 Temperature Pulse Rate 103 H 96 H 98 H Respiratory Rate 13 12 13 Blood Pressure Blood Pressure [Right Arm] Pulse Oximetry Oxygen Delivery Method Oxygen Delivery Flow Rate 10/31/22 02:00 10/31/22 02:10 10/31/22 02:20 Temperature Pulse Rate 98 H 101 H 83 Respiratory Rate 13 11 L 7 L Blood Pressure Blood Pressure [Right Arm] Pulse Oximetry Oxygen Delivery Method Oxygen Delivery Flow Rate 10/31/22 02:30 10/31/22 02:40 10/31/22 02:50 Temperature Pulse Rate 98 H 94 H 90 Respiratory Rate 13 11 L 13 Blood Pressure Blood Pressure [Right Arm] Pulse Oximetry Oxygen Delivery Method Oxygen Delivery Flow Rate 10/31/22 03:00 10/31/22 03:10 10/31/22 03:20 Temperature Pulse Rate 81 85 81 Respiratory Rate 13 13 13 Blood Pressure Blood Pressure [Right Arm] Pulse Oximetry Oxygen Delivery Method Oxygen Delivery Flow Rate 10/31/22 03:30 10/31/22 03:40 10/31/22 03:50 Temperature Pulse Rate 75 90 84 Respiratory Rate 12 12 14 Blood Pressure Blood Pressure [Right Arm] Pulse Oximetry Oxygen Delivery Method Oxygen Delivery Flow Rate 10/31/22 04:00 10/31/22 04:10 10/31/22 04:20 Temperature Pulse Rate 91 H 90 97 H Respiratory Rate 12 12 12 Blood Pressure Blood Pressure [Right Arm] Pulse Oximetry Oxygen Delivery Method Oxygen Delivery Flow Rate 10/31/22 04:30 10/31/22 04:40 10/31/22 04:50 Temperature Pulse Rate 78 83 93 H Respiratory Rate 13 13 12 Blood Pressure Blood Pressure [Right Arm] Pulse Oximetry Oxygen Delivery Method Oxygen Delivery Flow Rate 10/31/22 05:00 10/31/22 05:10 10/31/22 05:20 Temperature Pulse Rate 87 84 95 H Respiratory Rate 13 12 12 Blood Pressure Blood Pressure [Right Arm] Pulse Oximetry Oxygen Delivery Method Oxygen Delivery Flow Rate 10/31/22 05:30 10/31/22 05:40 10/31/22 05:50 Temperature Pulse Rate 83 94 H 83 Respiratory Rate 11 L 12 13 Blood Pressure Blood Pressure [Right Arm] Pulse Oximetry Oxygen Delivery Method Oxygen Delivery Flow Rate 10/31/22 06:00 10/31/22 06:10 10/31/22 06:20 Temperature Pulse Rate 82 89 97 H Respiratory Rate 13 11 L 12 Blood Pressure Blood Pressure [Right Arm] Pulse Oximetry Oxygen Delivery Method Oxygen Delivery Flow Rate 10/31/22 06:30 10/31/22 06:40 10/31/22 06:50 Temperature Pulse Rate 77 88 89 Respiratory Rate 13 13 10 L Blood Pressure Blood Pressure [Right Arm] Pulse Oximetry Oxygen Delivery Method Oxygen Delivery Flow Rate 10/31/22 07:00 10/31/22 07:10 10/31/22 07:20 Temperature 97.5 F L Pulse Rate 112 H 85 96 H Respiratory Rate 18 15 19 Blood Pressure 111/87 H Blood Pressure [Right Arm] Pulse Oximetry 95 Oxygen Delivery Method Oxygen Delivery Flow Rate 6 10/31/22 07:30 10/31/22 09:04 10/31/22 09:23 Temperature Pulse Rate 79 84 Respiratory Rate 8 L Blood Pressure Blood Pressure [Right Arm] Pulse Oximetry 90 L Oxygen Delivery Method Oxygen Delivery Flow Rate 5 10/31/22 09:23 10/31/22 07:40 10/31/22 07:50 Temperature Pulse Rate 97 H 91 H 80 Respiratory Rate 12 20 Blood Pressure Blood Pressure [Right Arm] Pulse Oximetry Oxygen Delivery Method Oxygen Delivery Flow Rate 10/31/22 08:00 10/31/22 08:10 10/31/22 08:20 Temperature Pulse Rate 91 H 95 H 98 H Respiratory Rate 17 17 14 Blood Pressure Blood Pressure [Right Arm] Pulse Oximetry Oxygen Delivery Method Oxygen Delivery Flow Rate 10/31/22 08:30 10/31/22 08:40 10/31/22 08:50 Temperature Pulse Rate 107 H 108 H 90 Respiratory Rate 32 H 17 20 Blood Pressure Blood Pressure [Right Arm] Pulse Oximetry Oxygen Delivery Method Oxygen Delivery Flow Rate 10/31/22 09:00 10/31/22 09:10 10/31/22 09:20 Temperature Pulse Rate 96 H 90 102 H Respiratory Rate 12 18 21 Blood Pressure Blood Pressure [Right Arm] Pulse Oximetry Oxygen Delivery Method Oxygen Delivery Flow Rate 10/31/22 09:30 10/31/22 09:40 10/31/22 09:50 Temperature Pulse Rate 88 82 103 H Respiratory Rate 18 23 19 Blood Pressure Blood Pressure [Right Arm] Pulse Oximetry Oxygen Delivery Method Oxygen Delivery Flow Rate 10/31/22 10:00 10/31/22 10:10 10/31/22 10:20 Temperature Pulse Rate 90 81 77 Respiratory Rate 19 20 21 Blood Pressure Blood Pressure [Right Arm] Pulse Oximetry Oxygen Delivery Method Oxygen Delivery Flow Rate 10/31/22 10:30 10/31/22 10:40 10/31/22 10:50 Temperature Pulse Rate 87 104 H 79 Respiratory Rate 20 18 22 Blood Pressure 115/74 Blood Pressure [Right Arm] Pulse Oximetry 94 L Oxygen Delivery Method Oxygen Delivery Flow Rate 10/31/22 11:00 10/31/22 12:05 Temperature Pulse Rate 85 94 H Respiratory Rate 18 Blood Pressure Blood Pressure [Right Arm] Pulse Oximetry Oxygen Delivery Method Oxygen Delivery Flow Rate Documenting provider has reviewed patient's vital signs: yes General appearance: frail appearing Other: Sleeping confortably, in no acute distress HENMT Common normals: normocephalic Head and scalp: other (bruising over right mu-ism) Eye Common normals: conjunctivae normal and no scleral icterus Respiratory Common normals: normal respiratory effort and no use of accessory muscles Auscultation: crackles Laterality: bilateral and diminished lung sounds Cardio Common normals: no JVD, regular rate, regular rhythm, S1 normal heart sound and S2 normal heart sound GI Common normals: Normal to inspection, nondistended, normoactive bowel sounds present, soft to palpation, non-tender and no hepatosplenomegaly Extremity General: edema (+3 to b/l LE) Neuro Common normals: moves all extremities Sensorium/orientation: somnolent (Had just received olanzapine) Meningeal signs: no meningeal signs Psych Attitude: uncooperative Mood and affect: anxious and hostile affect Other: Agitated, anxious until she was given Zyprexa Results Labs Labs: Short CBC 10/31/22 Range/Units 06:37 WBC 12.8 H (4.0-11.0) 10^3/uL Hgb 10.3 L (12.0-16.0) g/dL Hct 33.9 L (36.0-48.0) % Plt Count 207 (150-450) 10^3/uL BMP 10/31/22 06:37 Sodium 142 Potassium 4.0 Chloride 105 Carbon Dioxide 34.3 H BUN 22.0 H Creatinine 0.82 Glucose 123 H Calcium 8.4 L Liver Function 10/31/22 Range/Units 06:37 Total Bilirubin 0.3 (0.2-1.0) mg/dL AST 17 (15-37) U/L ALT 19 (14-59) U/L Alkaline Phosphatase 101 (46-116) U/L Albumin 2.2 L (3.4-5.0) g/dL ABG ABG results: 10/29/22 10/30/22 23:20 03:13 ABG pH 7.360 7.326 L ABG pCO2 54.5 H* 65.1 H* ABG pO2 73.1 L 78.0 L ABG HCO3 30.7 H 34.0 H ABG O2 Saturation 93.7 94.5 ABG Base Excess 5.3 H 8.0 H Assessment and Plan Assessment and Plan (1) Altered mental status: Assessment and Plan: Likely due to hypercapnic resp failure, b/l PNA and sepsis Required sedation to calm her down as patient was agitated, hostile and was at risk of hurting herself. CT head negative for acute intracranial pathology. Treat underlying pathology, monitor closely. Qualifiers: Altered mental status type: disorientation Qualified Code(s): R41.0 - Disorientation, unspecified (2) Acute and chronic respiratory failure with hypoxia: Assessment and Plan: due to b/l PNA, COPD exacerbation and acute on chronic diastolic HF Wean of O2 as tolerated. (3) Acute hypercapnic respiratory failure: Assessment and Plan: Likely due to PNA, COPD exacerbation and acute on chronic diastolic HF. C/w current treatment. BIPAP as needed. (4) Acute on chronic diastolic (congestive) heart failure: Assessment and Plan: IV lasix 40 q12. Monitor I/O, daily weights. Recent hospital admission at [facility] for same and required thoracentesis. (5) Pneumonia: Assessment and Plan: b/l airspace disease. On IV rocephin. She really should be treated for hospital acquired PNA due to recent hospital admission, one week ago. Will escalate therapy if no clinical improvement. Qualifiers: Pneumonia type: due to unspecified organism Laterality: bilateral (6) COPD exacerbation: Assessment and Plan: Fiant exp wheezing likely provoked by PNA. PO prednisone, c/w inhaled bronchodilators. (7) PARKER (acute kidney injury): Assessment and Plan: Normal baseline Cr. Mild PARKER likely cardiorenal and will need diuresis. Monitor UO,cr closely while on diuretic. (8) Atrial fibrillation: Assessment and Plan: Persistent Afib. Rate controlled. Coumadin for AC. Check INR. c/w Cardizem and Lopressor (9) Depression: Assessment and Plan: C/w sertraline and Seroquel. (10) Hypertension: Assessment and Plan: At goal. C/w Cardizem, Lopressor (11) Hyperlipidemia: Assessment and Plan: C/w statin (12) Acidosis, lactic: Assessment and Plan: due to hypoxia, PNA. Monitor. (13) Dementia: Assessment and Plan: H/o dementia with intermittent agitation, behavioral disturbances. Acute worsening due to multiple active medical problems. Qualifiers: Dementia type: unspecified type Dementia severity: moderate Dementia behavioral or psychological symptom: with agitation Qualified Code(s): F03.B11 - Unspecified dementia, moderate, with agitation
--- NOTE | 2022-10-31 14:07 | SWNOTE1 ---
PT/OT and H&P sent to [facility] for precert.
--- NOTE | 2022-10-31 14:15 | PM.IMPN1 ---
Progress Note: A&P Assessment and Plan (1) Sepsis: Assessment and Plan: HR> 90, RR> 20, with bordeline hypotension, organ dysfunction (PARKER and resp failure) Stable hemodynamics now. Being treated for PNA Qualifiers: Sepsis type: sepsis due to unspecified organism Sepsis acute organ dysfunction status: with acute organ dysfunction Severe sepsis acute organ dysfunction type: acute respiratory failure Acute respiratory failure type: with hypoxia Severe sepsis shock status: without septic shock Qualified Code(s): A41.9 - Sepsis, unspecified organism; R65.20 - Severe sepsis without septic shock; J96.01 - Acute respiratory failure with hypoxia (2) Altered mental status: Assessment and Plan: Back to baseline. Monitor. Qualifiers: Altered mental status type: disorientation Qualified Code(s): R41.0 - Disorientation, unspecified (3) Acute and chronic respiratory failure with hypoxia: Assessment and Plan: On 2 L O2 via NC now. Improved from before (4) Acute hypercapnic respiratory failure: Assessment and Plan: Improved. Monitor (5) Acute on chronic diastolic (congestive) heart failure: Assessment and Plan: Still volume overload on exam. Will require IV diuresis. C/w IV lasix 40 q12 Monitor UO, daily weights. CXR tomorrow (6) Pneumonia: Assessment and Plan: On rocephin. Improving. Will c/w same as patient seems to be improving clinically. Qualifiers: Pneumonia type: due to unspecified organism Laterality: bilateral (7) COPD exacerbation: Assessment and Plan: Improved air entry, with scant wheeze. C/w duonebs and prednisone (8) PARKER (acute kidney injury): Assessment and Plan: improved with diuresis. Closely monitor UO/renal function (9) Atrial fibrillation: Assessment and Plan: Persistent. Rate controlled Coumadin for stroke px. INR is sub therapeutic. (10) Depression: Assessment and Plan: C/w sertraline and Seroquel. (11) Hypertension: Assessment and Plan: At goal. c/w home meds (12) Hyperlipidemia: Assessment and Plan: C/w statin (13) Acidosis, lactic: Assessment and Plan: improved (14) Dementia: Assessment and Plan: Baseline dementia with intermittent agitation and anxiety. Doing well today. Clonopin as needed (home med) Qualifiers: Dementia type: unspecified type Dementia severity: moderate Dementia behavioral or psychological symptom: with agitation Qualified Code(s): F03.B11 - Unspecified dementia, moderate, with agitation Internal Medicine - PN: Subj Subjective Interval history: Seen and examined. No overnight events. Back to baseline neurological status. On 2 L O 2 via NC. Exam Constitutional Vital Signs - 24 hr 10/30/22 15:00 10/30/22 15:06 10/30/22 14:20 Temperature 98.2 F Pulse Rate 96 H 110 H Respiratory Rate 7 L Blood Pressure Blood Pressure [Right Arm] Pulse Oximetry Oxygen Delivery Method Oxygen Delivery Flow Rate 10/30/22 14:30 10/30/22 14:40 10/30/22 14:50 Temperature Pulse Rate 98 H 87 85 Respiratory Rate 15 15 15 Blood Pressure Blood Pressure [Right Arm] Pulse Oximetry Oxygen Delivery Method Oxygen Delivery Flow Rate 10/30/22 15:00 10/30/22 19:00 10/31/22 02:00 Temperature 98 F 97.9 F Pulse Rate 100 H 108 H 95 H Respiratory Rate 22 20 18 Blood Pressure 112/73 Blood Pressure [Right Arm] 114/77 Pulse Oximetry 95 95 90 L Oxygen Delivery Method Nasal Cannula Oxygen Delivery Flow Rate 6 6 6 10/31/22 06:00 10/30/22 20:12 10/30/22 20:00 Temperature Pulse Rate 89 Respiratory Rate 16 Blood Pressure 114/77 Blood Pressure [Right Arm] 100/72 Pulse Oximetry 97 92 L Oxygen Delivery Method Nasal Cannula Nasal Cannula Oxygen Delivery Flow Rate 6 6 10/30/22 20:00 10/30/22 22:13 10/31/22 04:19 Temperature 97.9 F Pulse Rate 75 108 H Respiratory Rate 18 18 20 Blood Pressure Blood Pressure [Right Arm] 117/77 Pulse Oximetry 92 L 94 L 94 L Oxygen Delivery Method Nasal Cannula Nasal Cannula Nasal Cannula Oxygen Delivery Flow Rate 6 6 6 10/31/22 07:37 10/30/22 23:20 10/30/22 23:30 Temperature Pulse Rate 103 H 101 H 113 H Respiratory Rate 13 13 Blood Pressure Blood Pressure [Right Arm] Pulse Oximetry Oxygen Delivery Method Oxygen Delivery Flow Rate 10/30/22 23:40 10/30/22 23:50 10/31/22 00:00 Temperature Pulse Rate 116 H 115 H 120 H Respiratory Rate 14 13 13 Blood Pressure Blood Pressure [Right Arm] Pulse Oximetry Oxygen Delivery Method Oxygen Delivery Flow Rate 10/31/22 00:10 10/31/22 00:20 10/31/22 00:30 Temperature Pulse Rate 112 H 116 H 107 H Respiratory Rate 14 14 9 L Blood Pressure Blood Pressure [Right Arm] Pulse Oximetry Oxygen Delivery Method Oxygen Delivery Flow Rate 10/31/22 00:40 10/31/22 00:50 10/31/22 01:00 Temperature Pulse Rate 108 H 105 H 109 H Respiratory Rate 14 12 13 Blood Pressure Blood Pressure [Right Arm] Pulse Oximetry Oxygen Delivery Method Oxygen Delivery Flow Rate 10/31/22 01:10 10/31/22 01:20 10/31/22 01:30 Temperature Pulse Rate 107 H 115 H 103 H Respiratory Rate 12 14 13 Blood Pressure Blood Pressure [Right Arm] Pulse Oximetry Oxygen Delivery Method Oxygen Delivery Flow Rate 10/31/22 01:40 10/31/22 01:50 10/31/22 02:00 Temperature Pulse Rate 96 H 98 H 98 H Respiratory Rate 12 13 13 Blood Pressure Blood Pressure [Right Arm] Pulse Oximetry Oxygen Delivery Method Oxygen Delivery Flow Rate 10/31/22 02:10 10/31/22 02:20 10/31/22 02:30 Temperature Pulse Rate 101 H 83 98 H Respiratory Rate 11 L 7 L 13 Blood Pressure Blood Pressure [Right Arm] Pulse Oximetry Oxygen Delivery Method Oxygen Delivery Flow Rate 10/31/22 02:40 10/31/22 02:50 10/31/22 03:00 Temperature Pulse Rate 94 H 90 81 Respiratory Rate 11 L 13 13 Blood Pressure Blood Pressure [Right Arm] Pulse Oximetry Oxygen Delivery Method Oxygen Delivery Flow Rate 10/31/22 03:10 10/31/22 03:20 10/31/22 03:30 Temperature Pulse Rate 85 81 75 Respiratory Rate 13 13 12 Blood Pressure Blood Pressure [Right Arm] Pulse Oximetry Oxygen Delivery Method Oxygen Delivery Flow Rate 10/31/22 03:40 10/31/22 03:50 10/31/22 04:00 Temperature Pulse Rate 90 84 91 H Respiratory Rate 12 14 12 Blood Pressure Blood Pressure [Right Arm] Pulse Oximetry Oxygen Delivery Method Oxygen Delivery Flow Rate 10/31/22 04:10 10/31/22 04:20 10/31/22 04:30 Temperature Pulse Rate 90 97 H 78 Respiratory Rate 12 12 13 Blood Pressure Blood Pressure [Right Arm] Pulse Oximetry Oxygen Delivery Method Oxygen Delivery Flow Rate 10/31/22 04:40 10/31/22 04:50 10/31/22 05:00 Temperature Pulse Rate 83 93 H 87 Respiratory Rate 13 12 13 Blood Pressure Blood Pressure [Right Arm] Pulse Oximetry Oxygen Delivery Method Oxygen Delivery Flow Rate 10/31/22 05:10 10/31/22 05:20 10/31/22 05:30 Temperature Pulse Rate 84 95 H 83 Respiratory Rate 12 12 11 L Blood Pressure Blood Pressure [Right Arm] Pulse Oximetry Oxygen Delivery Method Oxygen Delivery Flow Rate 10/31/22 05:40 10/31/22 05:50 10/31/22 06:00 Temperature Pulse Rate 94 H 83 82 Respiratory Rate 12 13 13 Blood Pressure Blood Pressure [Right Arm] Pulse Oximetry Oxygen Delivery Method Oxygen Delivery Flow Rate 10/31/22 06:10 10/31/22 06:20 10/31/22 06:30 Temperature Pulse Rate 89 97 H 77 Respiratory Rate 11 L 12 13 Blood Pressure Blood Pressure [Right Arm] Pulse Oximetry Oxygen Delivery Method Oxygen Delivery Flow Rate 10/31/22 06:40 10/31/22 06:50 10/31/22 07:00 Temperature Pulse Rate 88 89 112 H Respiratory Rate 13 10 L 18 Blood Pressure Blood Pressure [Right Arm] Pulse Oximetry Oxygen Delivery Method Oxygen Delivery Flow Rate 10/31/22 07:10 10/31/22 07:20 10/31/22 07:30 Temperature 97.5 F L Pulse Rate 85 96 H 79 Respiratory Rate 15 19 8 L Blood Pressure 111/87 H Blood Pressure [Right Arm] Pulse Oximetry 95 Oxygen Delivery Method Oxygen Delivery Flow Rate 10/31/22 09:04 10/31/22 09:23 10/31/22 09:23 Temperature Pulse Rate 84 97 H Respiratory Rate Blood Pressure Blood Pressure [Right Arm] Pulse Oximetry 90 L Oxygen Delivery Method Oxygen Delivery Flow Rate 5 10/31/22 07:40 10/31/22 07:50 10/31/22 08:00 Temperature Pulse Rate 91 H 80 91 H Respiratory Rate 12 20 17 Blood Pressure Blood Pressure [Right Arm] Pulse Oximetry Oxygen Delivery Method Oxygen Delivery Flow Rate 10/31/22 08:10 10/31/22 08:20 10/31/22 08:30 Temperature Pulse Rate 95 H 98 H 107 H Respiratory Rate 17 14 32 H Blood Pressure Blood Pressure [Right Arm] Pulse Oximetry Oxygen Delivery Method Oxygen Delivery Flow Rate 10/31/22 08:40 10/31/22 08:50 10/31/22 09:00 Temperature Pulse Rate 108 H 90 96 H Respiratory Rate 17 20 12 Blood Pressure Blood Pressure [Right Arm] Pulse Oximetry Oxygen Delivery Method Oxygen Delivery Flow Rate 10/31/22 09:10 10/31/22 09:20 10/31/22 09:30 Temperature Pulse Rate 90 102 H 88 Respiratory Rate 18 21 18 Blood Pressure Blood Pressure [Right Arm] Pulse Oximetry Oxygen Delivery Method Oxygen Delivery Flow Rate 10/31/22 09:40 10/31/22 09:50 10/31/22 10:00 Temperature Pulse Rate 82 103 H 90 Respiratory Rate 23 19 19 Blood Pressure Blood Pressure [Right Arm] Pulse Oximetry Oxygen Delivery Method Oxygen Delivery Flow Rate 10/31/22 10:10 10/31/22 10:20 10/31/22 10:30 Temperature Pulse Rate 81 77 87 Respiratory Rate 20 21 20 Blood Pressure Blood Pressure [Right Arm] Pulse Oximetry Oxygen Delivery Method Oxygen Delivery Flow Rate 10/31/22 10:40 10/31/22 10:50 10/31/22 11:00 Temperature Pulse Rate 104 H 79 85 Respiratory Rate 18 22 18 Blood Pressure 115/74 Blood Pressure [Right Arm] Pulse Oximetry 94 L Oxygen Delivery Method Oxygen Delivery Flow Rate 6 10/31/22 12:05 10/31/22 13:55 Temperature Pulse Rate 94 H 93 H Respiratory Rate Blood Pressure Blood Pressure [Right Arm] Pulse Oximetry Oxygen Delivery Method Oxygen Delivery Flow Rate Documenting provider has reviewed patient's vital signs: yes Common normals: no apparent distress General appearance: cooperative and comfortable [facility] Common normals: normocephalic Head and scalp: other (bruising over right worship) Eye Common normals: conjunctivae normal and no scleral icterus Respiratory Common normals: normal respiratory effort and no use of accessory muscles Auscultation: crackles Laterality: bilateral, wheezes expiratory wheezes and diminished lung sounds Cardio Common normals: no JVD, regular rate, S1 normal heart sound and S2 normal heart sound Rhythm: abnormal rhythm GI Common normals: Normal to inspection, nondistended, normoactive bowel sounds present, soft to palpation, non-tender and no hepatosplenomegaly Extremity General: edema (+2) Neuro Common normals: oriented x3, moves all extremities, no focal motor deficits and no sensory deficits noted Psych Common normals: mental status grossly normal, thought process normal, denies homicidal ideation and denies suicidal ideation Internal Medicine - PN: Obj Da Labs Labs: Laboratory Results - last 24 hr 10/30/22 10/30/22 10/31/22 15:34 20:09 06:36 WBC RBC Hgb Hct MCV MCH MCHC RDW Plt Count MPV Neut % (Auto) Lymph % (Auto) [place]berry % (Auto) Eos % (Auto) Baso % (Auto) Neut # (Auto) Lymph # (Auto) [place] # (Auto) Eos # (Auto) Baso # (Auto) Abs Immat Gran (auto) Imm/Tot Granulo (auto) PT INR Sodium Potassium Chloride Carbon Dioxide Anion Gap BUN Creatinine Est GFR ( Amer) Est GFR (Non-Af Amer) BUN/Creatinine Ratio Glucose Calcium Total Bilirubin AST ALT Alkaline Phosphatase Total Protein Albumin Globulin Albumin/Globulin Ratio POC Glucose 233 H 228 H 129 H 10/31/22 10/31/22 10/31/22 06:37 08:04 10:56 WBC 12.8 H RBC 3.43 L Hgb 10.3 L Hct 33.9 L MCV 98.8 MCH 30.0 MCHC 30.4 RDW 17.4 H Plt Count 207 MPV 9.7 Neut % (Auto) 83.7 H Lymph % (Auto) 4.8 L Newberry % (Auto) 10.9 Eos % (Auto) 0.0 L Baso % (Auto) 0.2 Neut # (Auto) 10.7 H Lymph # (Auto) 0.6 L [place]berry # (Auto) 1.4 H Eos # (Auto) 0.0 Baso # (Auto) 0.0 Abs Immat Gran (auto) 0.05 H Imm/Tot Granulo (auto) 0.4 PT 17.3 H INR 1.68 Sodium 142 Potassium 4.0 Chloride 105 Carbon Dioxide 34.3 H Anion Gap 6.7 BUN 22.0 H Creatinine 0.82 Est GFR ( Amer) >60 Est GFR (Non-Af Amer) >60 BUN/Creatinine Ratio 26.8 Glucose 123 H Calcium 8.4 L Total Bilirubin 0.3 AST 17 ALT 19 Alkaline Phosphatase 101 Total Protein 6.4 Albumin 2.2 L Globulin 4.2 Albumin/Globulin Ratio 0.5 POC Glucose 108 H 127 H Urinary Catheter Management Urinary Catheter Management Urethral: Cath placed during this visit: no
[2022-10-31] MEDS: CLONAZEPAM 0.5 MG TABLET PO ×2 (14:56→23:37)
[2022-10-31 16:15] LABS: Glucometer 123 mg/dL (74-106)
[2022-10-31] MEDS: WARFARIN SODIUM 5 MG TABLET 2.5 MG PO (16:18)
[2022-10-31] MEDS: WARFARIN SODIUM 1 MG TABLET PO (16:18)
--- NOTE | 2022-10-31 17:16 | SWNOTE1 ---
Pt is approved to return to [facility]. SW updated nursing. Packet is ready for weekend.
[2022-10-31 20:11] LABS: Glucometer 228 mg/dL (74-106)
[2022-10-31] MEDS: INSULIN ASPART 300 UNIT/3 ML PEN SUBQ (21:56)
[2022-10-31] MEDS: QUETIAPINE FUMARATE 25 MG TABLET 12.5 MG PO (23:37)
[2022-11-01] VITALS (20 sets, daily range): BP systolic 107–115; BP diastolic 74–79; PULSE 60–121; RESP 18–20; TEMP 36.3–36.8; O2SAT 89–97
[2022-11-01 05:36] LABS: Basophils Percent Auto 0.2 % (0.2-2.0); Hematocrit 33.4 % (36.0-48.0); Immature Granulocytes Abs Auto 0.08 10^3/uL (0.00-0.03); Immature Granulocytes Pct Auto 0.7 % (0.0-0.5); Lymphocytes Absolute Auto 0.8 10^3/uL (1.2-3.8); Lymphocytes Percent Auto 6.4 % (20.5-60.0); Mean Corpuscular HGB Conc 29.9 g/dL (29.9-35.2); Mean Corpuscular Hemoglobin 29.6 pg (26.7-34.0); Mean Corpuscular Volume 98.8 fL (81.0-99.0); Monocytes Absolute Auto 1.1 10^3/uL (0.3-0.8); Monocytes Percent Auto 9.5 % (1.7-12.0); Neutrophils Absolute Auto 9.9 10^3/uL (1.4-6.5); Neutrophils Percent Auto 83.2 % (43.0-75.0); Platelet Count 211 10^3/uL (150-450); Red Blood Count 3.38 10^6/uL (4.20-5.40); Red Cell Distribution Width 17.3 % (11.0-15.0); White Blood Count 11.9 10^3/uL (4.0-11.0)
[2022-11-01 06:06] LABS: Alanine Aminotransferase 18 U/L (14-59); Albumin Globulin Ratio 0.5; Albumin Level 2.2 g/dL (3.4-5.0); Alkaline Phosphatase 97 U/L (46-116); Anion Gap 6.8; Aspartate Amino Transferase 18 U/L (15-37); BUN Creatinine Ratio 30.6; Bilirubin Total 0.2 mg/dL (0.2-1.0); Calcium 8.5 mg/dL (8.5-10.1); Carbon Dioxide 34.4 mmol/L (21.0-32.0); Chloride 106 mmol/L (98-107); Estimated GFR (African America >60 (>=60); Estimated GFR (Non-African Ame >60 (>=60); Globulin 4.3 g/dL; Glucose 117 mg/dL (74-106); Potassium 4.2 mmol/L (3.5-5.1); Sodium 143 mmol/L (136-145); Total Protein 6.5 g/dL (6.4-8.2)
--- NOTE | 2022-11-01 06:11 | XR_ITS ---
[address] [address] Patient Name: ARGELIA LOMBARDI MRN: [id number] date: 1945 Sex: F Assigned Patient Location: [place] Current Patient Location: [place] Accession/Order Number: [id number] Exam Date: 11/01/2022 06:00 Report Date: 11/01/2022 08:11 At the request of: SHAIKH JOAN Procedure: XR chest 1V Exam: Radiographs: XR chest 1V Reason for exam: CHF Comparison: Chest x-ray dated 10/29/2022 IMPRESSION: Atelectasis and/or infiltrate in the right lower lung. Small right pleural effusion. Pulmonary venous hypertension. Remainder of the chest is unremarkable. Electronically authenticated by: ADAN MOLINA Date: 11/01/2022 08:11
[2022-11-01 06:13] LABS: INR 1.92; Prothrombin Time 19.6 sec (9.0-11.6)
[2022-11-01] MEDS: BUDESONIDE 0.5 MG/2 ML AMPULE NEB IH ×2 (08:07→20:37)
--- NOTE | 2022-11-01 08:10 | RESP.RT ---
decreased from 5.5 to 5 L NC
[2022-11-01] MEDS: DILTIAZEM HCL 60 MG TABLET PO ×2 (09:28→22:33)
[2022-11-01] MEDS: ATORVASTATIN CALCIUM 10 MG TABLET PO (09:28)
[2022-11-01] MEDS: METOPROLOL SUCCINATE 25 MG TAB.ER.24H PO ×2 (09:29→22:30)
[2022-11-01] MEDS: SERTRALINE HCL 100 MG TABLET PO (09:29)
[2022-11-01] MEDS: MULTIVITAMIN TABLET 400 TAB PO (09:29)
[2022-11-01] MEDS: OMEGA-3/DHA/EPA/FISH OIL 1,000 MG CAPSULE 1000 MG PO (09:29)
[2022-11-01] MEDS: OMEPRAZOLE 40 MG CAPSULE.DR PO (09:30)
--- NOTE | 2022-11-01 10:32 | PT.DAILY ---
Physical Therapy Daily Note PT Daily Note/Assess Start: 10/31/22 13:15 Freq: Status: Active Protocol: Document 11/01/22 08:50 RALPH (Rec: 11/01/22 10:32 RALPH [id number]) Physical Therapy Daily Note/Assessment Time In/Time Out Time In 08:50 Time Out 09:07 Pain In Pain N/A Pain Out Pain N/A Subjective Subjective Pt attempting to sit up in bed and bed alarm is going off upon arrival. Pt is agreeable to PT at this time. Pt denies pain but states she just woke up and doesn't know what's going on yet. O2 93% prior to session on 5L O2. Therapeutic Exercise Time Therapeutic Exercise Minutes (minutes) 5 Therapeutic Exercise Units 0 Therapeutic Exercise Treatment Therapeutic Exercise Treatment Pt performs seated AP, LAQ, marches, add squeezes and abd step outs 10x ea while sitting unsupported at EOB. Therapeutic Activity Time Therapeutic Activity Minutes (minutes) 5 Therapeutic Activity Units 0 Therapeutic Activity Treatment Bed Mobility Ability Modified Independent Chair Transfer Ability Minimum Assist Therapeutic Activity Comments Pt sits up on her own with ZULEIKA due to O2 lines and catheter bag. Pt able to sit unsupported at EOB while completing seated ex. Does need occ cues for proper form/ to stay on task. Pt sit>stand with Sade and amb with RW CGA 15' to BS chair. Does get SOB. O2 drops to 84% with activity today. Total Physical Therapy Time Total Therapy Minutes 10 Total Physical Therapy Units 0 Summary Daily Note Summary Easily fatigued today but did just wake up. Pt denies pain. SOB with activity.
[2022-11-01 11:00] LABS: Glucometer 121 mg/dL (74-106)
[2022-11-01] MEDS: FUROSEMIDE 40 MG/4 ML VIAL IVP (11:26)
[2022-11-01] MEDS: CEFTRIAXONE 1,000 MG in 0.9 % SODIUM CHLORIDE 50 ML 100 MG IV (11:26)
[2022-11-01] MEDS: PREDNISONE 20 MG TABLET 40 MG PO (11:27)
--- NOTE | 2022-11-01 14:08 | PM.PN ---
Progress Note: Subjective Subjective Interval history: Patient feels better this am. Less SOB and chest not as tight. Mild cough. Continues to have fatigue and SOB with exertion. Afebrile. Remains on 5 LPM. Normal appetite and no emesis or diarrhea. No chest pain or palptiations. Exam Constitutional Vital Signs - 24 hr 10/31/22 14:50 10/31/22 15:56 10/31/22 18:00 Temperature 98.2 F Pulse Rate 73 96 H 118 H Respiratory Rate 18 Blood Pressure [Right Arm] 109/73 Pulse Oximetry 93 L Oxygen Delivery Method Nasal Cannula Oxygen Delivery Flow Rate 4 10/31/22 18:17 10/31/22 19:53 10/31/22 19:56 Temperature Pulse Rate 110 H 117 H Respiratory Rate 18 18 Blood Pressure [Right Arm] 112/77 Pulse Oximetry 94 L Oxygen Delivery Method Room Air Oxygen Delivery Flow Rate 4 10/31/22 20:48 10/31/22 21:55 10/31/22 22:00 Temperature 97.6 F Pulse Rate 109 H 88 Respiratory Rate 18 Blood Pressure [Right Arm] 116/81 H Pulse Oximetry 92 L 92 L Oxygen Delivery Method Nasal Cannula Nasal Cannula Oxygen Delivery Flow Rate 6 5 11/01/22 00:03 11/01/22 01:56 11/01/22 03:57 Temperature Pulse Rate 115 H 102 H 92 H Respiratory Rate Blood Pressure [Right Arm] Pulse Oximetry Oxygen Delivery Method Oxygen Delivery Flow Rate 11/01/22 05:02 11/01/22 06:43 11/01/22 07:56 Temperature 97.9 F Pulse Rate 82 94 H Respiratory Rate 18 Blood Pressure [Right Arm] 115/79 Pulse Oximetry 92 L 92 L Oxygen Delivery Method Nasal Cannula Nasal Cannula Oxygen Delivery Flow Rate 6 5 11/01/22 08:09 11/01/22 08:09 11/01/22 09:48 Temperature Pulse Rate 60 98 H Respiratory Rate Blood Pressure [Right Arm] Pulse Oximetry 97 Oxygen Delivery Method Nasal Cannula Oxygen Delivery Flow Rate 5.5 11/01/22 11:53 Temperature Pulse Rate 80 Respiratory Rate Blood Pressure [Right Arm] Pulse Oximetry Oxygen Delivery Method Oxygen Delivery Flow Rate Documenting provider has reviewed patient's vital signs: yes Common normals: no apparent distress, oriented x3 and alert HENMT Common normals: normocephalic Eye Common normals: PERRL and EOMs intact bilaterally Respiratory Common normals: clear to auscultation bilaterally Cardio Common normals: regular rate, regular rhythm, no gallops, no murmurs and no rub GI Common normals: Normal to inspection, nondistended, normoactive bowel sounds present and non-tender Extremity General: no edema Progress Note: Objective Labs Labs: Short CBC 11/01/22 Range/Units 05:20 WBC 11.9 H (4.0-11.0) 10^3/uL Hgb 10.0 L (12.0-16.0) g/dL Hct 33.4 L (36.0-48.0) % Plt Count 211 (150-450) 10^3/uL BMP 11/01/22 05:20 Sodium 143 Potassium 4.2 Chloride 106 Carbon Dioxide 34.4 H BUN 26.0 H Creatinine 0.85 Glucose 117 H Calcium 8.5 Liver Function 11/01/22 Range/Units 05:20 Total Bilirubin 0.2 (0.2-1.0) mg/dL AST 18 (15-37) U/L ALT 18 (14-59) U/L Alkaline Phosphatase 97 (46-116) U/L Albumin 2.2 L (3.4-5.0) g/dL Progress Note: A&P Assessment and Plan (1) Sepsis: Qualifiers: Sepsis type: sepsis due to unspecified organism Sepsis acute organ dysfunction status: with acute organ dysfunction Severe sepsis acute organ dysfunction type: acute respiratory failure Acute respiratory failure type: with hypoxia Severe sepsis shock status: without septic shock Qualified Code(s): A41.9 - Sepsis, unspecified organism; R65.20 - Severe sepsis without septic shock; J96.01 - Acute respiratory failure with hypoxia (2) Altered mental status: Qualifiers: Altered mental status type: disorientation Qualified Code(s): R41.0 - Disorientation, unspecified (3) Acute and chronic respiratory failure with hypoxia: (4) Acute hypercapnic respiratory failure: (5) Acute on chronic diastolic (congestive) heart failure: (6) Pneumonia: Qualifiers: Pneumonia type: due to unspecified organism Laterality: bilateral (7) COPD exacerbation: (8) PARKER (acute kidney injury): (9) Atrial fibrillation: (10) Depression: (11) Hypertension: (12) Hyperlipidemia: (13) Acidosis, lactic: (14) Dementia: Qualifiers: Dementia type: unspecified type Dementia severity: moderate Dementia behavioral or psychological symptom: with agitation Qualified Code(s): F03.B11 - Unspecified dementia, moderate, with agitation Plan 1. Pneumonia 2. Sepsis 3. Acute hypoxic and hypercapnic respiratory failure 4. COPD exacerbarion 5. Acute on chronic HFpEF 6. PARKER 7. Paroxysmal afib Continues to improve and continue antibiotics, steroids, and breathing treatments. Remains on 5 LPM and wean O2 as tolerated. Add PEP. Monitor labs. Likely ready to return to SNF in next 1-2 days.
[2022-11-01] MEDS: CLONAZEPAM 0.5 MG TABLET PO (15:43)
[2022-11-01] MEDS: WARFARIN SODIUM 1 MG TABLET PO (16:30)
[2022-11-01] MEDS: WARFARIN SODIUM 5 MG TABLET 2.5 MG PO (16:30)
[2022-11-01 21:00] LABS: Glucometer 247 mg/dL (74-106)
[2022-11-01] MEDS: ZIPRASIDONE MESYLATE 20 MG/ML VIAL 10 MG IM (22:30)
[2022-11-01] MEDS: INSULIN ASPART 300 UNIT/3 ML PEN SUBQ (22:31)
[2022-11-02] VITALS (10 sets, daily range): BP systolic 115–128; BP diastolic 74–93; PULSE 80–107; RESP 18–20; TEMP 36.4; O2SAT 90–91
[2022-11-02] MEDS: FUROSEMIDE 40 MG/4 ML VIAL IVP (00:58)
[2022-11-02 05:36] LABS: Basophils Percent Auto 0.2 % (0.2-2.0); Hematocrit 34.8 % (36.0-48.0); Hemoglobin 10.5 g/dL (12.0-16.0); Immature Granulocytes Abs Auto 0.08 10^3/uL (0.00-0.03); Immature Granulocytes Pct Auto 0.7 % (0.0-0.5); Lymphocytes Absolute Auto 0.9 10^3/uL (1.2-3.8); Lymphocytes Percent Auto 7.1 % (20.5-60.0); Mean Corpuscular HGB Conc 30.2 g/dL (29.9-35.2); Mean Corpuscular Volume 99.4 fL (81.0-99.0); Monocytes Absolute Auto 1.3 10^3/uL (0.3-0.8); Monocytes Percent Auto 10.6 % (1.7-12.0); Neutrophils Absolute Auto 9.9 10^3/uL (1.4-6.5); Neutrophils Percent Auto 81.4 % (43.0-75.0); Platelet Count 218 10^3/uL (150-450); Red Cell Distribution Width 17.2 % (11.0-15.0); White Blood Count 12.2 10^3/uL (4.0-11.0)
[2022-11-02 05:51] LABS: Alanine Aminotransferase 9 U/L (14-59); Albumin Globulin Ratio 0.5; Albumin Level 2.3 g/dL (3.4-5.0); Alkaline Phosphatase 106 U/L (46-116); Anion Gap 6.6; Aspartate Amino Transferase 17 U/L (15-37); BUN Creatinine Ratio 27.7; Bilirubin Total 0.3 mg/dL (0.2-1.0); Calcium 8.7 mg/dL (8.5-10.1); Carbon Dioxide 38.4 mmol/L (21.0-32.0); Chloride 103 mmol/L (98-107); Estimated GFR (African America >60 (>=60); Estimated GFR (Non-African Ame 53 (>=60); Globulin 4.3 g/dL; Glucose 103 mg/dL (74-106); Sodium 144 mmol/L (136-145); Total Protein 6.6 g/dL (6.4-8.2)
[2022-11-02 05:53] LABS: INR 2.18; Prothrombin Time 22.1 sec (9.0-11.6)
[2022-11-02] MEDS: BUDESONIDE 0.5 MG/2 ML AMPULE NEB IH (10:00)
[2022-11-02 11:02] LABS: Glucometer 121 mg/dL (74-106)
[2022-11-02] MEDS: DILTIAZEM HCL 60 MG TABLET PO (11:06)
[2022-11-02] MEDS: OMEGA-3/DHA/EPA/FISH OIL 1,000 MG CAPSULE 1000 MG PO (11:07)
[2022-11-02] MEDS: SERTRALINE HCL 100 MG TABLET PO (11:07)
[2022-11-02] MEDS: ATORVASTATIN CALCIUM 10 MG TABLET PO (11:07)
[2022-11-02] MEDS: MULTIVITAMIN TABLET 400 TAB PO (11:07)
[2022-11-02] MEDS: CLONAZEPAM 0.5 MG TABLET PO (11:07)
[2022-11-02] MEDS: METOPROLOL SUCCINATE 25 MG TAB.ER.24H PO (11:08)
[2022-11-02] MEDS: OMEPRAZOLE 40 MG CAPSULE.DR PO (11:10)
--- NOTE | 2022-11-02 14:48 | P.DS_ITS ---
DS: Providers Provider Date of admission: 10/30/22 04:05 Primary care physician: ROD MATSON Consults: 10/30/22 10:56 Occupational Therapy Eval and Treat Routine Physical Therapy Eval and Treat Routine DS: Diagnosis Discharge Diagnosis (1) Sepsis: Qualifiers: Sepsis type: sepsis due to unspecified organism Sepsis acute organ dysfunction status: with acute organ dysfunction Severe sepsis acute organ dysfunction type: acute respiratory failure Acute respiratory failure type: with hypoxia Severe sepsis shock status: without septic shock Qualified Code(s): A41.9 - Sepsis, unspecified organism; R65.20 - Severe sepsis without septic shock; J96.01 - Acute respiratory failure with hypoxia (2) Altered mental status: Qualifiers: Altered mental status type: disorientation Qualified Code(s): R41.0 - Disorientation, unspecified (3) Acute and chronic respiratory failure with hypoxia: (4) Acute hypercapnic respiratory failure: (5) Acute on chronic diastolic (congestive) heart failure: (6) Pneumonia: Qualifiers: Pneumonia type: due to unspecified organism Laterality: bilateral (7) COPD exacerbation: (8) PARKER (acute kidney injury): (9) Atrial fibrillation: (10) Depression: (11) Hypertension: (12) Hyperlipidemia: (13) Acidosis, lactic: (14) Dementia: Qualifiers: Dementia type: unspecified type Dementia severity: moderate Dementia behavioral or psychological symptom: with agitation Qualified Code(s): F03.B11 - Unspecified dementia, moderate, with agitation Plan Primary diagnosis: Pneumonia Secondary diagnosis: 1. Sepsis 2. Acute hypoxic and hypercapnic respiratory failure 3. Acute exacerbation of COPD 4. Acute on chronic HFpEF 5. PARKER 6. Paroxysmal afib DS: Summary Hospital Course Hospital Course: Reason for admission: See ER note and H&P for details. 77 y/o female to ER wit h altered mental status. History of CHF and COPD on home O2. At SNF for about 1 week. Noticed decreased appetite and altered mental status. Increased confusion and SOB. Worsening hypoxia and sent to ER. Imaging showed pneumonia. SpO2 improved with increased oxygen. Admitted for treatment. Hospital course: Started rocephin and prednisone. Started DuoNeb for COPD. Evidence of fluid overload and started IV lasix. Resumed home medication. Slowly improved in hospital. SOB improved and mild cough. Fatigue improved but continued to have SOB and fatigue with exertion. WBC normal and renal function improved. Afebrile. Normal SpO2 on 5 LPM. Discharged back to SNF in stable condition. Will complete cefdinir and medrol as directed. Resume home medication as directed. Time Spent with Patient Time attestation: Total time spent providing and/or coordinating discharge services: Exam Constitutional Vital Signs - 24 hr 11/01/22 16:02 11/01/22 17:00 11/01/22 17:40 Temperature Pulse Rate 107 H 117 H Respiratory Rate Blood Pressure Blood Pressure [Right Arm] Pulse Oximetry 89 L Oxygen Delivery Method Nasal Cannula Oxygen Delivery Flow Rate 5 11/01/22 20:00 11/01/22 20:00 11/01/22 20:37 Temperature Pulse Rate 121 H Respiratory Rate 20 Blood Pressure Blood Pressure [Right Arm] Pulse Oximetry 90 L Oxygen Delivery Method Nasal Cannula Oxygen Delivery Flow Rate 5 11/01/22 21:04 11/01/22 22:00 11/01/22 22:33 Temperature 97.4 F L Pulse Rate 116 H 120 H Respiratory Rate 18 Blood Pressure 115/74 Blood Pressure [Right Arm] Pulse Oximetry 90 L Oxygen Delivery Method Nasal Cannula Oxygen Delivery Flow Rate 5 11/01/22 23:49 11/02/22 00:58 11/02/22 01:53 Temperature Pulse Rate 102 H 84 Respiratory Rate Blood Pressure 115/74 Blood Pressure [Right Arm] Pulse Oximetry Oxygen Delivery Method Oxygen Delivery Flow Rate 11/02/22 03:57 11/02/22 05:08 11/02/22 05:48 Temperature Pulse Rate 101 H 86 Respiratory Rate Blood Pressure Blood Pressure [Right Arm] Pulse Oximetry 90 L Oxygen Delivery Method Nasal Cannula Oxygen Delivery Flow Rate 5 11/02/22 07:00 11/02/22 07:55 11/02/22 09:56 Temperature 97.5 F L Pulse Rate 80 94 H 107 H Respiratory Rate 18 Blood Pressure Blood Pressure [Right Arm] 128/93 H Pulse Oximetry 91 L Oxygen Delivery Method Nasal Cannula Oxygen Delivery Flow Rate 11/02/22 10:05 11/02/22 11:59 Temperature Pulse Rate 106 H 103 H Respiratory Rate 20 Blood Pressure Blood Pressure [Right Arm] Pulse Oximetry 91 L Oxygen Delivery Method Nasal Cannula Oxygen Delivery Flow Rate 5 Documenting provider has reviewed patient's vital signs: yes Common normals: no apparent distress, oriented x3 and alert HENWI Common normals: normocephalic Eye Common normals: PERRL and EOMs intact bilaterally Respiratory Common normals: clear to auscultation bilaterally Cardio Common normals: regular rate, regular rhythm, no gallops, no murmurs and no rub GI Common normals: Normal to inspection, nondistended, normoactive bowel sounds present and non-tender Extremity General: no edema DS: Data Data Completed and Pending Labs on day of discharge: Labs from last 24 hours 11/02/22 11/02/22 11/01/22 11:00 05:15 20:59 WBC 12.2 H RBC 3.50 L Hgb 10.5 L Hct 34.8 L MCV 99.4 H MCH 30.0 MCHC 30.2 RDW 17.2 H Plt Count 218 MPV 10.0 Neut % (Auto) 81.4 H Lymph % (Auto) 7.1 L [place] % (Auto) 10.6 Eos % (Auto) 0.0 L Baso % (Auto) 0.2 Neut # (Auto) 9.9 H Lymph # (Auto) 0.9 L [place] # (Auto) 1.3 H Eos # (Auto) 0.0 Baso # (Auto) 0.0 Abs Immat Gran (auto) 0.08 H Imm/Tot Granulo (auto) 0.7 H PT 22.1 H INR 2.18 Sodium 144 Potassium 4.0 Chloride 103 Carbon Dioxide 38.4 H Anion Gap 6.6 BUN 28.0 H Creatinine 1.01 Est GFR ( Amer) >60 Est GFR (Non-Af Amer) 53 L BUN/Creatinine Ratio 27.7 Glucose 103 Calcium 8.7 Total Bilirubin 0.3 AST 17 ALT 9 L Alkaline Phosphatase 106 Total Protein 6.6 Albumin 2.3 L Globulin 4.3 Albumin/Globulin Ratio 0.5 POC Glucose 121 H 247 H Preliminary micro results at discharge 10/30/22 00:06 - Preliminary Blood NO GROWTH AT 36-48 HOURS. FINAL TO FOLLOW. 10/30/22 00:00 Blood Culture Result 1 - Preliminary Blood NO GROWTH AT 36-48 HOURS. FINAL TO FOLLOW. Discharge Plan Discharge Disposition: Xfer [facility] Condition: Fair Discharge Medications: New prednisone 20 mg Tablet 40 mg PO QD 5 Days Qty: 5 0RF cefdinir 300 mg capsule 300 mg PO BID 5 Days Qty: 10 0RF Continued acetaminophen 325 mg capsule 650 mg PO Q6H PRN (Reason: fever or pain) albuterol sulfate 2.5 mg /3 mL (0.083 %) solution for nebulization 1.25 mg inhalation Q6H atorvastatin 10 mg tablet 10 mg PO .QHS budesonide-formoterol 160-4.5 mcg/actuation HFA aerosol inhaler 2 puff INHALATION BID furosemide 40 mg tablet 40 mg PO .QD metoprolol succinate 25 mg tablet extended release 24 hr 25 mg PO .QD multivitamin [Daily Multi-Vitamin] Tablet 1 tab PO DAILY [place]-3 (with dpa) 1,050-1,200 mg capsule 1 cap PO DAILY quetiapine 25 mg tablet 12.5 mg PO DAILY PRN (Reason: insomnia) sertraline 100 mg tablet 100 mg PO DAILY Tudorza Pressair 400 mcg/actuation aerosol powdr breath activated 1 inh INHALATION BID warfarin 5 mg tablet 2.5 mg PO DAILY warfarin 1 mg tablet 1 mg PO DAILY diltiazem HCl 180 mg capsule,extended release 24 hr 360 mg PO QAM fluticasone propionate [Flonase Allergy Relief] 50 mcg/actuation spray,suspension 2 spray intranasal DAILY Rx Instructions: administer into each nostril clonazepam 0.5 mg tablet 0.5 mg PO TID PRN (Reason: anxiety) 5 Days Qty: 15 0RF [employer] Instructions: Discharge to [place] for rehab. Forms: Portal Instructions Discharge Date/Time: 11/02/22 12:53
== END 2022-11-02 12:53 | DRG 871 ==
LOC: ER 10-30 00:58 → MS 10-30 01:59 → ICU 10-30 04:36 → MS 10-31 12:21
PROVIDERS: Internal Medicine; Admitting Provider Family Medicine; Emergency Provider Emergency Medicine; PCP Family Medicine; Visit Provider Internal Medicine
DX: A41.9 Sepsis, unspecified organism (principal); I50.33 Acute on chronic diastolic (congestive) heart failure; J96.02 Acute respiratory failure with hypercapnia; J96.21 Acute and chronic respiratory failure with hypoxia; J18.9 Pneumonia, unspecified organism; J44.1 Chronic obstructive pulmonary disease with (acute) exacerbation; J44.0 Chronic obstructive pulmonary disease with (acute) lower respiratory infection; N17.9 Acute kidney failure, unspecified; E87.20 Acidosis, unspecified; F03.B11 Unspecified dementia, moderate, with agitation; I48.91 Unspecified atrial fibrillation; S00.83XA Contusion of other part of head, initial encounter; W19.XXXA Unspecified fall, initial encounter; R65.20 Severe sepsis without septic shock; R41.0 Disorientation, unspecified; F32.A Depression, unspecified; E78.5 Hyperlipidemia, unspecified; I11.0 Hypertensive heart disease with heart failure; F17.210 Nicotine dependence, cigarettes, uncomplicated; Z79.51 Long term (current) use of inhaled steroids; Z79.01 Long term (current) use of anticoagulants; Z79.899 Other long term (current) drug therapy; Z91.199 Patient's noncompliance with other medical treatment and regimen due to unspecified reason; Z99.81 Dependence on supplemental oxygen; Z88.5 Allergy status to narcotic agent; Z88.8 Allergy status to other drugs, medicaments and biological substances; Z82.49 Family history of ischemic heart disease and other diseases of the circulatory system; Z82.5 Family history of asthma and other chronic lower respiratory diseases; Z81.8 Family history of other mental and behavioral disorders
CPT/HCPCS: 36415; 36600; 51702; 70450; 71045; 71046; 80048; 80053; 81001; 82805; 82948; 83605; 83880; 84484; 85007; 85025; 85610; 85730; 87040; 93005; 93306; 94640; 94667; 94668; 94761; 96361; 96365; 96366; 96372; 96375; 96376; 97110; 97161; 97165; 97530; 99285; J2920; Q3014